=== PATIENT | male | born 1960 | race Caucasian/White ===

== ENCOUNTER → 2016-10-11 | Outpatient (CLI) | payer BC ==
[~2016-10-11] MED LIST: MELO15TA14 PO; NF-LT10/20 PO; PANT40TA2 PO
--- NOTE | 2016-10-11 12:41 | Diagnostic Imaging Report ---
PROCEDURE: MRI right joint upper extremity without contrast. Technique: Multiplanar, multisequence MR imaging of the right shoulder was performed without contrast. Comparison: None available. Indication: Right shoulder pain. Findings: Rotator cuff: Complete tear of the supraspinatus which is retracted at the level of glenohumeral joint. The tear is near the myotendinous junction. There is also a complete tear of the supraspinatus at the myotendinous junction with torn fibers retracted to the glenohumeral joint. Complete retracted tear of the subscapularis. The teres minor is normal. There is severe fatty atrophy of the subscapularis, supraspinatus, and infraspinatus. Glenoid labrum: Diffuse degenerative macerated tearing throughout the entire glenoid labrum. There is tear at the chondrolabral junction throughout the entire labrum with the placement of the anterior inferior labrum. There is a large posterior para-labral cyst superiorly which extends into the suprascapular notch. Long head of biceps: Complete rupture of long head of the biceps. Bones and cartilage: Superior subluxation of the humeral head due to chronic rotator cuff tear. Multifocal partial-thickness chondral loss throughout the glenohumeral joint. Moderate hypertrophic degenerative change of the acromioclavicular joint. Soft tissues: Small glenohumeral joint effusion with mild synovitis. No MRI findings to suggest adhesive capsulitis. No fluid or inflammatory like signal within the subacromial/subdeltoid space to indicate bursitis. IMPRESSION: 1. Chronic massive rotator cuff tear with complete tears of the subscapularis, supraspinatus and infraspinatus. There is associated [id number]-[id number] fatty atrophy of all three muscle bellies. 2. Moderate rotator cuff tear arthropathy of the glenohumeral joint. 3. Complete rupture of the long head of biceps. 4. Extensive degenerative macerated tearing throughout the entire glenoid labrum. 5. Small glenohumeral joint effusion with mild synovitis. Dictated by: Dictated on workstation # [id number]
== END ==
LOC: RAD 08:38
PROVIDERS: ATTEND Orthopaedic Surgery
DX: M75.121 Complete rotator cuff tear or rupture of right shoulder, not specified as traumatic (principal); M62.111 Other rupture of muscle (nontraumatic), right shoulder; S43.491A Other sprain of right shoulder joint, initial encounter; M25.411 Effusion, right shoulder; X58.XXXA Exposure to other specified factors, initial encounter; Y99.8 Other external cause status
CPT/HCPCS: 73221

== ENCOUNTER → 2017-12-01 | Outpatient (CLI) | payer OTHER, BC ==
--- NOTE | 2017-12-01 10:34 | Diagnostic Imaging Report ---
INDICATION: Twisting injury with pain. COMPARISON: No previous exam for comparison. FINDINGS: The lumbar body heights are maintained. The alignment is within normal limits. There is some endplate sclerosis and osteophytes but no acute appearing endplate irregularity. No listhesis. There is only mild degenerative disc space narrowing and mild mid to lower lumbar facet arthrosis. There are aortoiliac atherosclerotic vascular calcifications. IMPRESSION: No acute appearing bony abnormality. Dictated by: Dictated on workstation # [id number]
== END ==
LOC: RAD 09:53
PROVIDERS: ATTEND Nurse Practitioner Family
DX: S39.92XA Unspecified injury of lower back, initial encounter (principal); X50.1XXA Overexertion from prolonged static or awkward postures, initial encounter
CPT/HCPCS: 72100

== ENCOUNTER 2021-04-30 20:30 | Inpatient (IN) | payer BC, OTHER ==
[~2021-04-30] VITALS: Ht 180 cm; Wt 92.0 kg
--- NOTE | 2021-04-30 20:56 | ED General ---
General Stated Complaint: NOT ACTING RIGHT Source of Information: Patient, Family Exam Limitations: No Limitations History of Present Illness Date Seen by Provider: Apr 30, 2021 Time Seen by Provider: 20:38 Initial Comments 58-year-old male with past medical history of hypertension, hyperlipidemia, GERD coming in with family due to generally not feeling well for the past 10 days roughly. Had a GI bug about a month ago. Had a sinus infection which he finished antibiotics and steroids about 3 weeks ago. For the past 10 to 14 days has been generally weak, mild cough which is more chronic, no vomiting, no d iarrhea, no chest pain, but does endorse some dyspnea worse with exertion. Has had normal bowel movements with no bright red blood or black stool. Has been eating and drinking. Has essentially been laying in bed for a couple of days. Is otherwise denying any other acute complaints including chest pain, abdominal pain, nausea, vomiting, diarrhea, focal weakness or numbness, rash, dysuria, or any other concerns. Allergies and Home Medications Allergies Coded Allergies: No Known Drug Allergies (Unverified , 09/10/13) Patient Home Medication List Home Medication List Reviewed: Yes Amlodipine/Benazepril (Lotrel 10-20 mg Capsule) 1 Cap Cap, 1 CAP PO DAILY, (Reported) Entered as Reported by: SCOOTER VASQUEZ on 01/11/151103 Meloxicam (Mobic) 15 Mg Tablet, 15 MG PO DAILY, (Reported) Entered as Reported by: SCOOTER VASQUEZ on 01/11/151103 Pantoprazole Sodium (Protonix) 40 Mg Tablet.dr, 40 MG PO DAILY, (Reported) Entered as Reported by: SCOOTER VASQUEZ on 01/11/151103 Review of Systems Review of Systems Constitutional: No chills, No fever EENTM: No blurred vision Respiratory: cough, short of breath Cardiovascular: No chest pain Gastrointestinal: No abdominal pain, No diarrhea, No nausea, No vomiting Genitourinary: no symptoms reported Musculoskeletal: no symptoms reported Skin: no symptoms reported Psychiatric/Neurological: Other (General weakness) Hematologic/Lymphatic: No Symptoms Reported Immunological/Allergic: no symptoms reported All Other Systems Reviewed Negative Unless Noted: Yes Past Kokjukc-Foborb-Sfzujy Hx Patient Social History Tobacco Use?: Yes Past Medical History Surgeries: Yes (traumatic pneumothorax) Physical Exam Vital Signs Vital Signs - First Documented 04/30/21 20:38 Temp 36.2 Pulse 91 Resp 20 B/P (MAP) 100/51 (67) Pulse Ox 99 O2 Delivery Room Air Capillary Refill : Height, Weight, BMI Height: 5'11.00" Weight: 210lbs. oz. 95.514877bk; BMI Method: General Appearance: No Apparent Distress, Other (pale) HEENT: PERRL/EOMI, Normal ENT Inspection, Pharynx Normal Neck: Full Range of Motion, Normal Inspection, Non Tender, Supple Respiratory: Chest Non Tender, Lungs Clear, Normal Breath Sounds, No Accessory Muscle Use, No Respiratory Distress Cardiovascular: Regular Rate, Rhythm, No Edema, Normal Peripheral Pulses Gastrointestinal: Normal Bowel Sounds, Non Tender, Soft; No Distended, No Guarding Back: Normal Inspection, No CVA Tenderness, No Vertebral Tenderness Extremity: Normal Capillary Refill, Normal Inspection, Normal Range of Motion, Non Tender, No Calf Tenderness Neurologic/Psychiatric: Alert, Oriented x3, No Motor/Sensory Deficits, Normal Mood/Affect Skin: Warm/Dry, Other (Pale) Lymphatic: No Adenopathy Focused Exam Lactate Level 04/30/21 21:25: Lactic Acid Level 5.71*H Lactic Acid Level Laboratory Tests Test 04/30/21 21:25 Lactic Acid Level 5.71 MMOL/L (0.50-2.00) *H Progress/Results/Core Measures Suspected Sepsis SIRS Temperature: Pulse: Respiratory Rate: Blood Pressure / Mean: 04/30/21 21:25: Lactic Acid Level 5.71*H Laboratory Tests 04/30/21 21:25: Creatinine 0.91, INR Comment 1.1, Total Bilirubin 0.3 Results/Orders Lab Results Laboratory Tests Test 04/30/21 20:48 04/30/21 21:25 04/30/21 21:45 Range/Units Influenza Type A (RT-PCR) Not Detected Not Detecte Influenza Type B (RT-PCR) Not Detected Not Detecte SARS-CoV-2 RNA (RT-PCR) Not Detected Not Detecte Prothrombin Time 14.2 12.2-14.7 SEC INR Comment 1.1 0.8-1.4 Activated Partial Thromboplast Time 32 24-35 SEC Sodium Level 126 L 135-145 MMOL/L Potassium Level 4.3 3.6-5.0 MMOL/L Chloride Level 98 98-107 MMOL/L Carbon Dioxide Level 14 L 21-32 MMOL/L Anion Gap 14 5-14 MMOL/L Blood Urea Nitrogen 10 7-18 MG/DL Creatinine 0.91 0.60-1.30 MG/DL Estimat Glomerular Filtration Rate 95 BUN/Creatinine Ratio 11 Glucose Level 91 70-105 MG/DL Lactic Acid Level 5.71 *H 0.50-2.00 MMOL/L Calcium Level 8.3 L 8.5-10.1 MG/DL Corrected Calcium 8.9 8.5-10.1 MG/DL Total Bilirubin 0.3 0.1-1.0 MG/DL Aspartate Amino Transf (AST/SGOT) 13 5-34 U/L Alanine Aminotransferase (ALT/SGPT) 14 0-55 U/L Alkaline Phosphatase 57 40-136 U/L Troponin I < 0.028 <0.028 NG/ML B-Type Natriuretic Peptide 163.2 H <100.0 PG/ML Total Protein 5.6 L 6.4-8.2 GM/DL Albumin 3.3 3.2-4.5 GM/DL Procalcitonin 0.02 <0.10 NG/ML My Orders Orders - EFRAÍN POSADA MD Comprehensive Metabolic Panel (04/30/21 20:50) Blood Culture (04/30/21 20:50) Urinalysis (04/30/21 20:50) Urine Culture (04/30/21 20:50) Protime With Inr (04/30/21 20:50) Partial Thromboplastin Time (04/30/21 20:50) Chest 1 View, Ap/Pa Only (04/30/21 20:50) Ed Iv/Invasive Line Start (04/30/21 20:50) Troponin I Sidney (04/30/21 20:50) Vital Signs Adult Sepsis Patie Q15M (04/30/21 20:50) O2 (04/30/21 20:50) Remove Rings In Anticipation O (04/30/21 20:50) Lactic Acid Analyzer (04/30/21 20:50) Lactated Ringers (Lr 1000 Ml Iv Solution (04/30/21 21:00) Bnp Sidney (04/30/21 20:50) Ekg Tracing (04/30/21 20:50) Procalcitonin (Pct) (04/30/21 20:50) Covid 19 Inhouse Test (04/30/21 20:50) Influenza A And B By Pcr (04/30/21 20:50) Ct Abdomen/Pelvis W (04/30/21 21:50) Medications Given in ED Current Medications Medications Dose Ordered Sig/Olesya Route Start Time Stop Time Status Last Admin Dose Admin Lactated Ringer's 1,000 ml @ 0 mls/hr Q0M ONCE IV 04/30/21 21:00 04/30/21 21:01 DC 04/30/21 21:07 0 MLS/HR Vital Signs/I&O 04/30/21 20:38 Temp 36.2 Pulse 91 Resp 20 B/P (MAP) 100/51 (67) Pulse Ox 99 O2 Delivery Room Air Capillary Refill : Progress Note : Progress Note 50-year-old male with above history coming in due to generally feeling weak. He was hypotensive on presentation for which an IV was placed and a bolus of IV fluids was given. He is not tachycardic and is breathing comfortably. Physical exam reassuring other than he is very pale. CBC was not able to be run because they said it was too diluted. We kept repeating it, but his hemoglobin is too low to run and they are estimating it is less than 3. He was given a unit of blood emergently and was O+ and uncrossed matched due to his hypotension. 3 units have been ordered for crossmatch as well to be given later after repeat CBC. Lactate around 5.7 likely due to his significant anemia. His stool is brown and it does not seem like this is a fast GI bleed. Could be having a slow bleed versus leukemia versus some other issue. CT abdomen and pelvis with no obvious cause of bleeding. Chest x-ray also clear. Discussed the case with Dr. Melissa who will admit the patient to the intensive care unit. I also called and discussed the case with the ICU physician. ECG Initial ECG Impression Date: Apr 30, 2021 Initial ECG Impression Time: 21:00 Initial ECG Rate: 81 Initial ECG Rhythm: Normal Sinus Comment Narrow QRS, normal axis, no significant ST changes or T wave abnormalities Diagnostic Imaging Diagonstic Imaging: Xray (chest), CT (abd/pelv with) Comments [facility] [place], [place] NAME: JEFF SILVA [facility] REC#: [id number] PT STATUS: REG ER : 1960 PHYSICIAN: EFRAÍN POSADA MD ADMIT DATE: 04/30/21/ER Draft Date of Exam:04/30/21 CHEST 1 VIEW, AP/PA ONLY EXAMINATION: Chest 1 view HISTORY: Short of breath COMPARISON: None available. FINDINGS: The lungs are clear without edema or pneumonia. No pleural effusion or pneumothorax. Heart size is normal. IMPRESSION: 1. Clear lungs. Dictated on workstation # [id number] Dict: 04/30/212226 Trans: 04/30/212228 [facility] [id number] Interpreted by: EDY LEONARDO MD Electronically signed by: [facility] [place], [place] NAME: JEFF SILVA [facility] REC#: [id number] PT STATUS: ADM IN : 1960 PHYSICIAN: EFRAÍN POSADA MD ADMIT DATE: 04/30/21/ICU Signed Date of Exam:04/30/21 CT ABDOMEN/PELVIS W EXAMINATION: CT abdomen and pelvis with intravenous contrast. TECHNIQUE: Multiple contiguous axial images were obtained through the abdomen and pelvis after the uneventful administration of intravenous contrast. All CT scans use one or more of the following dose optimizing techniques: automated exposure control, MA and/or KvP adjustment based on patient size and exam type or iterative reconstruction. HISTORY: Hypotensive COMPARISON: None available. FINDINGS: Limited views of the lower thorax show coronary artery calcifications. The liver is normal without focal lesion. There is no biliary ductal dilation. There is motion artifact in the upper abdomen but there does appear to be gallbladder wall thickening. There is periportal edema. Pancreas is normal. Spleen is normal. Adrenal glands are normal. The kidneys are normal. There is no hydronephrosis. Urinary bladder is normal. Bowel is normal in caliber without obstruction or inflammation. No free fluid or air. No abdominal or pelvic lymphadenopathy. Aorta is normal in caliber without aneurysm. There are no suspicious osseus lesions. IMPRESSION: 1. Gallbladder wall thickening and periportal edema, sonogram recommended to evaluate for cholecystitis. Dictated by: Dictated on workstation # [id number] Dict: 04/30/[id number] Trans: 04/30/212247 [facility] [id number] Interpreted by: EDY LEONARDO MD Electronically signed by: EDY LEONARDO MD 04/30/218 Departure Impression Primary Impression: Hemorrhagic shock Disposition: ADMITTED INPATIENT Condition: Stable Admissions Decision to Admit Reason: Admit from ER (General) Decision to Admit/Date: Apr 30, 2021 Time/Decision to Admit Time: 22:50 Departure-Patient Inst. Referrals: MÓNICA MELISSA MD (PCP/Family) Primary Care Physician EFRAÍN POSADA MD Apr 30, 2021 20:56
[2021-04-30] MEDS ORDERED: LACTATED RINGERS 1,000 ML IV ONE (21:00)
[2021-04-30 21:43] LABS: INR 1.1 (0.8-1.4); PROTHROMBIN TIME PATIENT 14.2 SEC (12.2-14.7)
[2021-04-30 21:49] LABS: ALBUMIN 3.3 GM/DL (3.2-4.5); CHLORIDE 98 MMOL/L (98-107); POTASSIUM 4.3 MMOL/L (3.6-5.0); SODIUM 126 MMOL/L (135-145)
[2021-04-30 21:50] LABS: CALCIUM 8.3 MG/DL (8.5-10.1)
[2021-04-30 21:52] LABS: GLUCOSE 91 MG/DL (70-105); TOTAL PROTEIN 5.6 GM/DL (6.4-8.2)
[2021-04-30 21:53] LABS: BILIRUBIN,TOTAL 0.3 MG/DL (0.1-1.0); CARBON DIOXIDE 14 MMOL/L (21-32)
[2021-04-30 21:55] LABS: ALKALINE PHOSPHATASE 57 U/L (40-136); CREATININE SERUM 0.91 MG/DL (0.60-1.30); GFR ESTIMATED 95
[2021-04-30 21:56] LABS: BUN/CREATININE RATIO 11
[2021-04-30 21:58] LABS: ALANINE AMINOTRANSFERASE 14 U/L (0-55)
[2021-04-30] MEDS ORDERED: NS IV 500 ML 500 ML IV SCH (22:15)
[2021-04-30] MEDS ORDERED: PANTOPRAZOLE 40 MG (PROTONIX) VIAL IV ONE (22:15)
--- NOTE | 2021-04-30 22:30 | Diagnostic Imaging Report ---
EXAMINATION: Chest 1 view HISTORY: Short of breath COMPARISON: None available. FINDINGS: The lungs are clear without edema or pneumonia. No pleural effusion or pneumothorax. Heart size is normal. IMPRESSION: 1. Clear lungs. Dictated by: Dictated on workstation # [id number]
--- NOTE | 2021-04-30 22:38 | Diagnostic Imaging Report ---
EXAMINATION: CT abdomen and pelvis with intravenous contrast. TECHNIQUE: Multiple contiguous axial images were obtained through the abdomen and pelvis after the uneventful administration of intravenous contrast. All CT scans use one or more of the following dose optimizing techniques: automated exposure control, MA and/or KvP adjustment based on patient size and exam type or iterative reconstruction. HISTORY: Hypotensive COMPARISON: None available. FINDINGS: Limited views of the lower thorax show coronary artery calcifications. The liver is normal without focal lesion. There is no biliary ductal dilation. There is motion artifact in the upper abdomen but there does appear to be gallbladder wall thickening. There is periportal edema. Pancreas is normal. Spleen is normal. Adrenal glands are normal. The kidneys are normal. There is no hydronephrosis. Urinary bladder is normal. Bowel is normal in caliber without obstruction or inflammation. No free fluid or air. No abdominal or pelvic lymphadenopathy. Aorta is normal in caliber without aneurysm. There are no suspicious osseus lesions. IMPRESSION: 1. Gallbladder wall thickening and periportal edema, sonogram recommended to evaluate for cholecystitis. Dictated by: Dictated on workstation # [id number]
[2021-04-30 22:45] VITALS: BP 88/37
[2021-04-30] MEDS ORDERED: IOHEXOL 350 MG/ML 100 ML (OMNIPAQUE 350) VIAL IV ONE (22:45)
[2021-04-30] MEDS ORDERED: NS 100 ML (IVPB) BAG IV ONE (22:45)
[2021-04-30] MEDS ORDERED: HOLD METFORMIN - RECEIVED CONTRAST 20 ML VIAL IV SCH (22:45)
--- NOTE | 2021-04-30 22:54 | Tele-ICU Progress Note ---
Subjective Date Seen by a Provider: Apr 30, 2021 Time Seen by a Provider: 22:30 Subjective/Events-last exam This virtual visit was conducted using real time audio/video. Thank you for asking us to see this patient for hypotension and severe anemia w HB < 3.0. Recent events: [place] weak for last 10 days. PMH: HTN, HL, GERD. SH: smoking history N FH: Non-contributory ROS: as in HPI PE: VSS. 100/50. Pale. O2 sat 99% on RA HEENT: No obvious masses, adenopathy or JVD. Chest: clear to auscultation. CV: RRR S1 S2 No murmur or added sounds. Abd: Non-tender. Bowel sounds Y. : Unremarkable. Olivera N. SCHEDULING ADMINISTRATOR/psychiatric: Grossly intact. No obvious focal findings. Extremities: No edema. Capillary refill < 3 seconds. Skin: unremarkable. Results: Elevated lactate 5.71. Decreased Hb <3.0, Na 126. WCC and Plts pending. CXR: Clear. Available chart/ vitals / labs / images reviewed. Video assessment done using teleICU camera, rest of exam as per RN. A/P: Critical Care: critically ill patient. GIB v. Leukemia? Cont. IVF, PPI, Transfuse 3 more units following 1 Unit Oneg in ER. Discussed with RN Leonie and ER MD. Asked RN to reach out to eICU if any questions or concerns later. Time spent with patient/coordination of care with other health professionals (mins): 22 Sepsis Event Evaluation Height, Weight, BMI Height: 5'11.00" Weight: 210lbs. oz. 95.426755bz; 27.00 BMI Method: Focused Exam Lactate Level 04/30/21 21:25: Lactic Acid Level 5.71*H Lactic Acid Level Laboratory Tests Test 04/30/21 21:25 Lactic Acid Level 5.71 MMOL/L (0.50-2.00) *H Exam Exam Patient acknowledged, consented, and participated in this virtual visit which was conducted using real time audio/video Vital Signs Date Time Temp Pulse Resp B/P (MAP) Pulse Ox O2 Delivery O2 Flow Rate FiO2 04/30/21 20:38 36.2 91 20 100/51 (67) 99 Room Air Height & Weight Height: 5'11.00" Weight: 210lbs. oz. 95.479644tc; 27.00 BMI Method: General Appearance: No Apparent Distress, Other (pale) HEENT: PERRL/EOMI, Normal ENT Inspection, Pharynx Normal Neck: Full Range of Motion, Normal Inspection, Non Tender, Supple Respiratory: Chest Non Tender, Lungs Clear, Normal Breath Sounds, No Accessory Muscle Use, No Respiratory Distress Cardiovascular: Regular Rate, Rhythm, No Edema, Normal Peripheral Pulses Capillary Refill: Less Than 3 Seconds Extremity: Normal Capillary Refill, Normal Inspection, Normal Range of Motion, Non Tender, No Calf Tenderness Neurologic/Psychiatric: Alert, Oriented x3, No Motor/Sensory Deficits, Normal Mood/Affect Skin: Warm/Dry, Other (Pale) Lymphatic: No Adenopathy Results Lab Laboratory Tests 04/30/21 21:25 Assessment/Plan Assessment/Plan See free text. Critical Care: Critically Ill Patient SOPHIA UQIROGA MD Apr 30, 2021 22:54
[2021-04-30 23:00] VITALS: BP 84/44
[2021-04-30] MEDS ORDERED: CATHETER FLUSH 10 ML SYR IVP PRN (23:45)
[2021-05-01] VITALS (11 sets, daily range): BP systolic 96–124; BP diastolic 46–78
[2021-05-01 00:33] LABS: BASOPHILS % (AUTO) 0 % (0-10); MEAN CORPUSCULAR HEMOGLOBIN 26 pg (25-34)
[2021-05-01 00:38] LABS: ABSOLUTE RETIC # 73 10e9/uL (24-90); EOSINOPHILS % (AUTO) 1 % (0-10); LYMPHOCYTES # (AUTO) 0.9 10^3/uL (1.0-4.0); LYMPHOCYTES % (AUTO) 10 % (12-44); MEAN CORPUSCULAR HGB CONC 31 g/dL (32-36); MEAN CORPUSCULAR VOLUME 82 fL (80-99); MEAN PLATELET VOLUME 9.8 fL (9.0-12.2); MONOCYTES # (AUTO) 0.8 10^3/uL (0.0-1.0); MONOCYTES % (AUTO) 9 % (0-12); NEUTROPHILS # (AUTO) 6.7 10^3/uL (1.8-7.8); NEUTROPHILS % (AUTO) 80 % (42-75); PLATELET COUNT 311 10^3/uL (130-400); RETICULOCYTE % 5.14 % (0.50-2.40); WHITE BLOOD COUNT 8.5 10^3/uL (4.3-11.0)
[2021-05-01 00:48] LABS: HEMATOCRIT 12 % (40-54); HEMOGLOBIN 3.6 g/dL (13.3-17.7)
[2021-05-01 00:59] LABS: BAND NEUTROPHILS 1 %; LYMPHOCYTES % (MANUAL) 12 %; MONOCYTES % (MANUAL) 3 %; NEUTROPHILS % (MANUAL) 83 %
[2021-05-01 01:00] LABS: ANISOCYTOSIS MARKED; EOSINOPHILS % (MANUAL) 1 %; HYPOCHROMASIA MARKED; NUCLEATED RED BLOOD CELLS 1
[2021-05-01] MEDS ORDERED: RT-ALBUTEROL/IPRATROPIUM 3 ML (DUONEB) VIAL INH PRN (01:00)
[2021-05-01] MEDS ORDERED: NS IV 500 ML 500 ML IV SCH ×3 (01:15→23:00)
[2021-05-01] MEDS: RT-ALBUTEROL/IPRATROPIUM 3 ML (DUONEB) VIAL INH SCH ×4 (02:38→22:18)
[2021-05-01 03:12] LABS: BASOPHILS % (AUTO) 0 % (0-10); EOSINOPHILS # (AUTO) 0.1 10^3/uL (0.0-0.3); EOSINOPHILS % (AUTO) 1 % (0-10); LYMPHOCYTES # (AUTO) 0.9 10^3/uL (1.0-4.0); LYMPHOCYTES % (AUTO) 11 % (12-44); MEAN CORPUSCULAR HEMOGLOBIN 26 pg (25-34); MEAN CORPUSCULAR HGB CONC 32 g/dL (32-36); MEAN CORPUSCULAR VOLUME 83 fL (80-99); MEAN PLATELET VOLUME 9.7 fL (9.0-12.2); MONOCYTES # (AUTO) 0.7 10^3/uL (0.0-1.0); MONOCYTES % (AUTO) 9 % (0-12); NEUTROPHILS # (AUTO) 6.5 10^3/uL (1.8-7.8); NEUTROPHILS % (AUTO) 80 % (42-75); PLATELET COUNT 310 10^3/uL (130-400); WHITE BLOOD COUNT 8.2 10^3/uL (4.3-11.0)
[2021-05-01 03:24] LABS: ALBUMIN 3.3 GM/DL (3.2-4.5); POTASSIUM 4.5 MMOL/L (3.6-5.0)
[2021-05-01 03:25] LABS: CALCIUM 7.8 MG/DL (8.5-10.1)
[2021-05-01 03:26] LABS: TOTAL PROTEIN 5.6 GM/DL (6.4-8.2)
[2021-05-01 03:28] LABS: BILIRUBIN,TOTAL 0.7 MG/DL (0.1-1.0)
[2021-05-01 03:29] LABS: PHOSPHORUS 4.3 MG/DL (2.3-4.7)
[2021-05-01 03:30] LABS: CREATININE SERUM 0.83 MG/DL (0.60-1.30); HEMATOCRIT 13 % (40-54); HEMOGLOBIN 4.2 g/dL (13.3-17.7)
[2021-05-01 03:32] LABS: MAGNESIUM 1.9 MG/DL (1.6-2.4)
[2021-05-01] MEDS: POTASSIUM CL 10MEQ/50ML IVPB 50 ML IV SCH (05:33)
[2021-05-01] MEDS: MAGNESIUM 1 GM/100 ML IVPB 100 ML IV SCH (05:34)
[2021-05-01] MEDS: KCL 20 MEQ TAB (K-DUR) PO SCH (05:35)
[2021-05-01] MEDS: CATHETER FLUSH 10 ML SYR IVP SCH ×3 (05:35→20:38)
[2021-05-01 06:12] LABS: BASOPHILS % (AUTO) 0 % (0-10); EOSINOPHILS # (AUTO) 0.1 10^3/uL (0.0-0.3); EOSINOPHILS % (AUTO) 1 % (0-10); LYMPHOCYTES # (AUTO) 1.2 10^3/uL (1.0-4.0); LYMPHOCYTES % (AUTO) 15 % (12-44); MEAN CORPUSCULAR HEMOGLOBIN 24 pg (25-34); MEAN CORPUSCULAR HGB CONC 29 g/dL (32-36); MEAN CORPUSCULAR VOLUME 84 fL (80-99); MEAN PLATELET VOLUME 10.9 fL (9.0-12.2); MONOCYTES # (AUTO) 0.8 10^3/uL (0.0-1.0); MONOCYTES % (AUTO) 9 % (0-12); NEUTROPHILS # (AUTO) 6.2 10^3/uL (1.8-7.8); NEUTROPHILS % (AUTO) 75 % (42-75); PLATELET COUNT 318 10^3/uL (130-400); WHITE BLOOD COUNT 8.2 10^3/uL (4.3-11.0)
[2021-05-01 06:15] LABS: HEMATOCRIT 10 % (40-54)
[2021-05-01 06:34] LABS: LYMPHOCYTES % (MANUAL) 11 %; MONOCYTES % (MANUAL) 12 %; NEUTROPHILS % (MANUAL) 77 %
[2021-05-01 06:35] LABS: ANISOCYTOSIS MARKED; HYPOCHROMASIA MARKED; MICROCYTOSIS SLIGHT; NUCLEATED RED BLOOD CELLS 2; POLYCHROMASIA MODERATE
--- NOTE | 2021-05-01 07:52 | History & Physical ---
History of Present Illness History of Present Illness Reason for visit/HPI Pt is a 60 y/o male who is known to me from previously being a patient in clinic. [facility] (pt goes by Fabienne) - has not been to the office since 10/2018. Pt reports that he has been receiving his healthcare at the [facility]. The pt and his dtr report that he had a URI about 3 weeks ago, was feeling in his usual state of health until the illness. He was treated with antibiotics and steroids, but his fatigue lingered. The patients daughter, Daisha, reports that she had been told that he was "looking horrible" and he denied feeling poorly, just wiped out. However, more friends called his dtr reporting that he appeared short of breath and very pale, she came down to check on him and she noted that he was so pale he looked like a corpse at a , could not get an oxygen saturation on him so she brought him to the ER. The ER physician reports that Fabienne had extreme pallor, and they immediately naresh labs, had him typed and crossmatched and the lab called to report "undetectable" hgb and plts. The reported Hgb was 3.0. Fabienne was admitted for blood transfusion, gi tract evaluation and supportive care for his cardiovascular system. Today he reports very restless leg, and also fatigue, but feels better than on admission, his dtr notes his color is much improved. Date of Admission Apr 30, 2021 at 22:00 Date Seen by a Provider: May 01, 2021 Time Seen by a Provider: 07:50 I consulted on this patient on 05/01/21 07:50 Attending Physician Mónica Mane MD Admitting Physician Mónica Mane MD Consult EICU Dr. Calderon - Heme/Oncology Dr. Gutierrez - surgeon Allergies and Home Medications Allergies Coded Allergies: No Known Drug Allergies (Unverified , 09/10/13) Patient Home Medication List Home Medication List Reviewed: Yes Atorvastatin Calcium (Atorvastatin Calcium) 80 Mg Tablet, 80 MG PO DAILY, (Reported) Entered as Reported by: CARLOS RODRIGUEZ on 05/01/21 1020 Last Action: Held Diltiazem HCl (Diltiazem 24Hr ER) 300 Mg Cap.er.24h, 300 MG PO DAILY, (Reported) Entered as Reported by: CARLOS RODRIGUEZ on 05/01/211019 Last Action: Continued Doxazosin Mesylate (Doxazosin Mesylate) 2 Mg Tablet, 2 MG PO DAILY, (Reported) Entered as Reported by: CARLOS RODRIGUEZ on 05/01/211019 Last Action: Continued Lorazepam (Ativan) 1 Mg Tablet, 1 MG PO HS, (Reported) Entered as Reported by: CARLOS RODRIGUEZ on 05/01/211019 Last Action: Continued Lorazepam (Ativan) 1 Mg Tablet, 1 MG PO DAILY PRN for ANXIETY, (Reported) Entered as Reported by: CARLOS RODRIGUEZ on 05/01/211019 Last Action: Continued Losartan/Hydrochlorothiazide (Losartan-Hctz 100-12.5 mg Tab) 1 Each Tablet, 1 EA PO DAILY, (Reported) Entered as Reported by: CARLOS RODRIGUEZ on 05/01/211019 Last Action: Held Meloxicam (Meloxicam) 15 Mg Tablet, 15 MG PO DAILY, (Reported) Entered as Reported by: CARLOS RODRIGUEZ on 05/01/211019 Last Action: Held Pantoprazole Sodium (Pantoprazole Sodium) 40 Mg Tablet.dr, 40 MG PO DAILY, (Reported) Entered as Reported by: CARLOS RODRIGUEZ on 05/01/211019 Last Action: Held Polyethylene Glycol 3350 (Miralax) 17 Gm Powd.pack, 17 GM PO DAILY PRN for CONSTIPATION-2ND LINE, (Reported) Entered as Reported by: CARLOS RODRIGUEZ on 05/01/211019 Last Action: Continued Sildenafil Citrate (Sildenafil) 20 Mg Tablet, 10 MG PO UD PRN for ED, (Reported) Entered as Reported by: CARLOS RODRIGUEZ on 05/01/211019 Last Action: Held Discontinued Medications Amlodipine/Benazepril (Lotrel 10-20 mg Capsule) 1 Cap Cap, 1 CAP PO DAILY, (Reported) Discontinued Reason: Duplicate Order Entered as Reported by: SCOOTER VASQUEZ on 01/11/151103 Last Action: Discontinued Meloxicam (Mobic) 15 Mg Tablet, 15 MG PO DAILY, (Reported) Entered as Reported by: SCOOTER VASQUEZ on 01/11/151103 Last Action: Discontinued Pantoprazole Sodium (Protonix) 40 Mg Tablet.dr, 40 MG PO DAILY, (Reported) Discontinued Reason: Duplicate Order Entered as Reported by: SCOOTER VASQUEZ on 01/11/15 7610 Last Action: Discontinued Past Fhnxmmd-Uhrlpc-Jdhblh Hx Patient Social History Marrital Status: Number of Children: 1 Living Status: lives in his home Employed/Student: employed Tobacco Use?: Yes Tobacco type used: Cigarettes Smoking Status: Current Everyday Smoker Use of E-Cig and/or Vaping dev: No Substance use?: No Alcohol Use?: Yes Alcohol type: Beer Alcohol Frequency: Couple times a week Immunizations Up To Date Date of Influenza Vaccine: Jan 30, 2021 First/Initial COVID19 Vaccinat: 2020 Second COVID19 Vaccination Geoffrey: 2020 Tetanus Booster (TDap): Unknown Seasonal Allergies Seasonal Allergies: No Current Status Advance Directives: No Communicates: Verbally Primary Language: Malay Preferred Spoken Language: Malay Past Medical History Surgeries: Orthopedic (right knee surgery) Currently Using CPAP: No Currently Using BIPAP: No Hypertension Sexually Transmitted Disease: No HIV/AIDS: No Chronic Constipation Arthritis Are Your Blood Sugars Over 250: No Loss of Vision: Denies Hearing Impairment: Denies Sleep Difficulties Blood Disorders: No Adverse Reaction/Blood Tranf: No Family Medical History Reviewed and Corrections made Heart Disease, Cancer (colorectal CA - sister), CAD Over 55 Years Old, Hypertension Review of Systems Constitutional: No chills, No diaphoresis; dizziness; No fever; malaise, weakness; No weight loss EENTM: No no symptoms reported, No hearing loss, No blurred vision, No vision loss, No mouth pain, No epistaxis, No nose congestion Respiratory: No cough; dyspnea on exertion; No hemoptysis, No orthopnea; short of breath; No stridor, No wheezing Cardiovascular: No chest pain, No edema, No palpitations, No syncope Gastrointestinal: abdominal pain (RUQ), constipation; No diarrhea, No dysphagia, No hematemesis; heartburn; No jaundice, No loss of appetite, No melena, No nausea Genitourinary: no symptoms reported; No dysuria, No frequency, No hematuria Musculoskeletal: No no symptoms reported, No back pain, No joint pain, No joint swelling; muscle weakness Skin: no symptoms reported Psychiatric/Neurological: Weakness All Other Systems Reviewed Negative Unless Noted: Yes Physical Exam Vital Signs Vital Signs - First Documented 04/30/21 05/01/21 20:38 00:30 Temp 36.2 Pulse 91 Resp 20 B/P (MAP) 100/51 (67) Pulse Ox 99 O2 Delivery Room Air FiO2 21 Capillary Refill : Less Than 3 Seconds Height, Weight, BMI Height: 5'11.00" Weight: 210lbs. oz. [id number]; 29.75 BMI Method: General Appearance: No Apparent Distress, WD/WN HEENT: PERRL/EOMI, Pharynx Normal Neck: Full Range of Motion, Normal Inspection, Non Tender, Supple Respiratory: Chest Non Tender, Lungs Clear, Normal Breath Sounds, No Accessory Muscle Use, No Respiratory Distress Cardiovascular: Regular Rate, Rhythm, Normal Peripheral Pulses Gastrointestinal: Normal Bowel Sounds, No Organomegaly, No Pulsatile Mass, Soft, Tenderness (very mild in right upper abdomen) Rectal: Normal Rectal Tone, Heme Positive Stool; No Hemorrhoids, No Mass, No Tenderness Back: Normal Inspection, No CVA Tenderness, No Vertebral Tenderness Extremity: Normal Capillary Refill, Normal Inspection, Normal Range of Motion, Non Tender, No Calf Tenderness, No Pedal Edema Neurologic/Psychiatric: Alert, Oriented x3, No Motor/Sensory Deficits, Normal Mood/Affect Skin: Warm/Dry, Pallor (slight) Assessment/Plan Assessment and Plan Extreme Anemia Hyponatremia Chronic Hypertension Chronic Esophageal reflux Hyperlipidemia BPH Anxiety Restless legs due to iron deficiency Extreme Anemia - suspect GI loss of blood - consult to Dr. Gutierrez for Colonoscope - after 4 units of blood - hgb up to 7.0, repeat labs later today, and again in morning. - consult to Hematology/Oncology. - peripheral smear pending Hyponatremia - slightly improved - monitor with repeat labs. Chronic Hypertension - resume home regimen Chronic Esophageal reflux - pantoprazole 40mg bid started. Hyperlipidemia - hold lipitor for now - will contribute to fatigue. BPH - will address as outpatient - pt on doxazosin. Anxiety - resume ativan Restless legs due to iron deficiency - monitor - gave dose of requip today GI prophylaxis with ppi DVT prophylaxis with scd's - not on lovenox due to suspected GI bleed. Admission Diagnosis Extreme Anemia Hyponatremia Chronic Hypertension Chronic Esophageal reflux Hyperlipidemia BPH Anxiety Restless legs due to iron deficiency Admission Status: Inpatient Order (span 2 midnights) Reason for Inpatient Admission: Pt is admitted for extreme anemia - suspect GI bleed - will require at least 2-3 midnights in the hospital for stabilization and investigation as to his source of blood loss. MÓNICA MANE MD May 01, 2021 07:52
[2021-05-01] MEDS ORDERED: rOPINIRole 0.25 MG (REQUIP) TAB PO ONE (08:30)
[2021-05-01] MEDS: NICOTINE 14 MG (NICODERM) PATCH TD SCH (08:53)
--- NOTE | 2021-05-01 09:16 | Diagnostic Imaging Report ---
EXAMINATION: CT chest without contrast. TECHNIQUE: Multiple contiguous axial images were obtained through the chest without the use of intravenous contrast. All CT scans use one or more of the following dose optimizing techniques: automated exposure control, MA and/or KvP adjustment based on patient size and exam type or iterative reconstruction. HISTORY: Severe anemia. Hemorrhagic shock. Cough and shortness of breath. COMPARISON: 12/14/2014. 04/30/2021. FINDINGS: The heart size is enlarged. Small pericardial effusion is present. There is scattered calcified aortic and coronary atherosclerotic plaque without evidence of aneurysm. Mildly prominent axillary lymph nodes are seen. Nodule is seen in the left lung base measuring 0.7 cm. There are no focal areas of consolidation. A small amount of dependent opacities are seen in the lung bases. No central endobronchial obstructing lesions are identified. Small right and trace left pleural effusions are seen. No pneumothorax. The osseous structures demonstrate no acute abnormalities. The kidneys have an heterogeneous appearance with likely retained contrast from the prior contrast study performed 10 hours earlier. Perinephric fat stranding is seen bilaterally. Excreted contrast is also seen throughout the gallbladder. IMPRESSION: 1. Small right and trace left pleural effusions with bibasilar atelectasis. 2. Cardiomegaly. 3. Nodule in the left lung base measuring 0.7 cm. Consider followup with chest CT in 12 months to ensure stability. 4. Abnormal retention of contrast within the kidneys from a prior contrast enhanced study 10 hours ago. Findings suggest renal failure. Recommend correlation with laboratory values. Dictated by: Dictated on workstation # [id number]
--- NOTE | 2021-05-01 09:45 | Tele-ICU Progress Note ---
Subjective Date Seen by a Provider: May 01, 2021 Time Seen by a Provider: 09:44 Subjective/Events-last exam (Tele-ICU Physician , Progress Note ) Available chart/ vitals / labs / Images reviewed Video assessment done using teleICU camera, rest of exam as per RN Discussed with RN , EXAM PER RN Events overnight : no BM inpatient , received 4 U PRBC Afebrile FiO2 - RA I/O = + Drips: Pressors: , hemodynamically stable Consultants: sx Hospital course: (04/30) 60y/M in with severe anemia Hg<3.0. pr has lactic acidosis. hypotensive 2/2 anemia= s/p 4U PRBC transfusion 05/01- hb 7.0 , normotensive A /P ABLA -s/p 4U PRBC transfusion ,hb 7.0 , normotensive- follow - no active GIB now GIB, suspected loewer - sx consulted, \\-NPO - protonix ? as per Sx Hemorrahic shock - resolved Hyponatremia - hyp[ovolemia - will follow now with repeated labs and check TSH , no sx or mental statuus change CM with pericard and plural effusion - monitor off IVF - card w/up as per PCP Lines : (Central Line Necessity Reviewed) Olivera: void OG: Nutrition: npo Analgesia: Anxiety/ delirium VTE Prophylaxis: scd Stress Ulcer Prophylaxis: Plans in collaboration with bedside consultants and IM MDs. Discussed with RN to reach out if any questions or concerns A total of 31 minutes of critical care time was devoted to this patient today, required to treat and/or prevent further deterioration of critical care condition ( as above) . Sepsis Event Evaluation Height, Weight, BMI Height: 5'11.00" Weight: 210lbs. oz. 95.909916yo; 29.75 BMI Method: Focused Exam Lactate Level 04/30/21 21:25: Lactic Acid Level 5.71*H 05/01/21 00:23: Lactic Acid Level 2.57*H 05/01/21 03:05: Lactic Acid Level 0.83 Exam Exam Patient acknowledged, consented, and participated in this virtual visit which was conducted using real time audio/video Vital Signs Date Time Temp Pulse Resp B/P (MAP) Pulse Ox O2 Delivery O2 Flow Rate FiO2 05/01/21 08:41 94 Room Air 05/01/21 08:14 36.8 80 16 124/78 94 Room Air 05/01/21 08:00 37.0 05/01/21 06:28 36.6 77 19 116/67 94 Room Air 05/01/21 06:14 37.2 85 17 119/70 97 Room Air 05/01/21 06:05 79 22 118/66 93 Room Air 05/01/21 05:55 36.8 84 14 117/71 95 Room Air 05/01/21 05:00 79 17 130/81 94 Room Air 05/01/21 04:15 37.1 81 18 112/52 96 Room Air 05/01/21 04:03 37.1 85 15 106/59 96 Room Air 05/01/21 04:00 94 Room Air 05/01/21 04:00 88 15 112/52 94 Room Air 05/01/21 03:47 36.2 74 14 116/46 94 Room Air 05/01/21 03:45 36.9 79 14 116/46 94 Room Air 05/01/21 03:00 81 10 114/66 94 Room Air 05/01/21 02:38 92 Room Air 05/01/21 02:00 85 5 106/65 99 Room Air 05/01/21 01:56 37.6 86 18 96/56 99 Room Air 05/01/21 01:46 38.0 81 16 103/50 100 Room Air 05/01/21 01:43 38.0 96 16 103/50 100 Room Air 05/01/21 01:00 92 21 104/51 100 Room Air 05/01/21 00:30 36.7 83 94 21 05/01/21 00:11 36.7 83 14 100/56 94 Room Air 05/01/21 00:00 80 17 98/50 99 Room Air 05/01/21 00:00 84 04/30/21 23:59 100 Room Air 04/30/21 23:45 36.7 82 14 121/55 100 Room Air 04/30/21 23:32 36.1 95 18 103/87 98 Room Air 04/30/21 23:30 128/69 Room Air 04/30/21 23:00 36.1 101 20 84/44 100 04/30/21 23:00 36.1 98 18 84/44 100 Room Air 04/30/21 22:55 36.1 93 18 81/48 98 Room Air 04/30/21 22:50 36.1 93 18 80/41 96 Room Air 04/30/21 22:45 36.2 93 18 88/37 97 Room Air 04/30/21 22:45 36.2 97 23 88/37 100 Room Air 04/30/21 22:36 36.7 82 14 100 Room Air 04/30/21 20:38 36.2 91 20 100/51 (67) 99 Room Air I & O 05/01/21 07:00 Intake Total 1000 ml Output Total 1125 ml Balance -125 ml Height & Weight Height: 5'11.00" Weight: 210lbs. oz. 95.921285pn; 29.75 BMI Method: General Appearance: No Apparent Distress, Other (pale) HEENT: PERRL/EOMI, Normal ENT Inspection, Pharynx Normal Neck: Full Range of Motion, Normal Inspection, Non Tender, Supple Respiratory: Chest Non Tender, Lungs Clear, Normal Breath Sounds, No Accessory Muscle Use, No Respiratory Distress Cardiovascular: Regular Rate, Rhythm, No Edema, Normal Peripheral Pulses Capillary Refill: Less Than 3 Seconds Extremity: Normal Capillary Refill, Normal Inspection, Normal Range of Motion, Non Tender, No Calf Tenderness Neurologic/Psychiatric: Alert, Oriented x3, No Motor/Sensory Deficits, Normal Mood/Affect Skin: Warm/Dry, Other (Pale) Lymphatic: No Adenopathy Results Lab Laboratory Tests 04/30/21 21:25 05/01/21 00:23 05/01/21 03:05 05/01/21 09:00 Assessment/Plan Assessment/Plan . BO RUFFIN MD May 01, 2021 09:45
[2021-05-01] MEDS ORDERED: DOXA2TAB2 PO (10:20)
[2021-05-01] MEDS ORDERED: SILD20TA14 PO (10:20)
[2021-05-01] MEDS ORDERED: PANT40TA52 PO (10:20)
[2021-05-01] MEDS ORDERED: MELO15TA39 PO (10:20)
[2021-05-01] MEDS ORDERED: POLY17PO6 PO (10:20)
[2021-05-01] MEDS ORDERED: LORA-405 PO ×2 (10:20)
[2021-05-01] MEDS ORDERED: ATOR80TA76 PO (10:20)
[2021-05-01] MEDS ORDERED: DILT300C52 PO (10:20)
[2021-05-01] MEDS ORDERED: LOSA1TAB26 PO (10:20)
--- NOTE | 2021-05-01 14:02 | Progress Note-Pre Operative ---
Pre-Operative Progress Note H&P Reviewed The H&P was reviewed, patient examined and no changes noted. Date Seen by Provider: May 01, 2021 Time Seen by Provider: 14:00 Date H&P Reviewed: May 01, 2021 Time H&P Reviewed: 14:00 Pre-Operative Diagnosis: anemia, hx GERD, hx polyp COLE LUNSFORD MD May 01, 2021 14:02
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
[2021-05-01] MEDS: MAGNESIUM CITRATE 300 ML BTL PO SCH ×2 (16:09→18:43)
[2021-05-01] MEDS ORDERED: polyethylene glycoL POWDER 17 GM (MIRALAX) PACK PO PRN (17:00)
[2021-05-01] MEDS ORDERED: LORazepam 1 MG (ATIVAN) TAB PO PRN (17:00)
[2021-05-01] MEDS ORDERED: LORazepam 1 MG (ATIVAN) TAB ONE (17:14)
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
[2021-05-01 18:25] LABS: ABSOLUTE RETIC # 81 10e9/uL (24-90); BASOPHILS % (AUTO) 0 % (0-10); EOSINOPHILS # (AUTO) 0.1 10^3/uL (0.0-0.3); EOSINOPHILS % (AUTO) 1 % (0-10); HEMATOCRIT 10 % (40-54); LYMPHOCYTES # (AUTO) 1.2 10^3/uL (1.0-4.0); LYMPHOCYTES % (AUTO) 15 % (12-44); MEAN CORPUSCULAR HEMOGLOBIN 24 pg (25-34); MEAN CORPUSCULAR HGB CONC 29 g/dL (32-36); MEAN CORPUSCULAR VOLUME 84 fL (80-99); MEAN PLATELET VOLUME 10.9 fL (9.0-12.2); MONOCYTES # (AUTO) 0.8 10^3/uL (0.0-1.0); MONOCYTES % (AUTO) 9 % (0-12); NEUTROPHILS # (AUTO) 6.2 10^3/uL (1.8-7.8); NEUTROPHILS % (AUTO) 75 % (42-75); PLATELET COUNT 318 10^3/uL (130-400); RETICULOCYTE % 6.55 % (0.50-2.40); WHITE BLOOD COUNT 8.2 10^3/uL (4.3-11.0)
[2021-05-01 18:26] LABS: LYMPHOCYTES % (MANUAL) 11 %; MONOCYTES % (MANUAL) 12 %; NEUTROPHILS % (MANUAL) 77 %; NUCLEATED RED BLOOD CELLS 2
[2021-05-01 18:27] LABS: ANISOCYTOSIS MARKED; HYPOCHROMASIA MARKED; MICROCYTOSIS SLIGHT; POLYCHROMASIA MODERATE
[2021-05-01] MEDS: LORazepam 1 MG (ATIVAN) TAB PO SCH (20:38)
[2021-05-01] MEDS: PANTOPRAZOLE 40 MG (PROTONIX) VIAL IV SCH (20:38)
[2021-05-01 22:16] LABS: HEMATOCRIT 21 % (40-54); MEAN CORPUSCULAR HEMOGLOBIN 28 pg (25-34); MEAN CORPUSCULAR HGB CONC 33 g/dL (32-36); MEAN CORPUSCULAR VOLUME 84 fL (80-99); MEAN PLATELET VOLUME 9.6 fL (9.0-12.2); PLATELET COUNT 317 10^3/uL (130-400); WHITE BLOOD COUNT 8.6 10^3/uL (4.3-11.0)
[2021-05-01 22:20] LABS: HEMOGLOBIN 6.8 g/dL (13.3-17.7)
[2021-05-01 22:56] LABS: HEPATITIS C ANTIBODY C Non-Reactive (Non-Reactive)
[2021-05-02] VITALS (7 sets, daily range): BP systolic 110–129; BP diastolic 53–76
[2021-05-02] MEDS: RT-ALBUTEROL/IPRATROPIUM 3 ML (DUONEB) VIAL INH SCH ×4 (02:32→21:06)
[2021-05-02 05:36] LABS: BASOPHILS % (AUTO) 1 % (0-10); EOSINOPHILS # (AUTO) 0.1 10^3/uL (0.0-0.3); EOSINOPHILS % (AUTO) 1 % (0-10); HEMATOCRIT 23 % (40-54); HEMOGLOBIN 7.5 g/dL (13.3-17.7); LYMPHOCYTES # (AUTO) 0.7 10^3/uL (1.0-4.0); LYMPHOCYTES % (AUTO) 8 % (12-44); MEAN CORPUSCULAR HEMOGLOBIN 28 pg (25-34); MEAN CORPUSCULAR HGB CONC 33 g/dL (32-36); MEAN CORPUSCULAR VOLUME 85 fL (80-99); MEAN PLATELET VOLUME 9.1 fL (9.0-12.2); MONOCYTES # (AUTO) 0.8 10^3/uL (0.0-1.0); MONOCYTES % (AUTO) 9 % (0-12); NEUTROPHILS # (AUTO) 6.9 10^3/uL (1.8-7.8); NEUTROPHILS % (AUTO) 80 % (42-75); PLATELET COUNT 295 10^3/uL (130-400); WHITE BLOOD COUNT 8.7 10^3/uL (4.3-11.0)
[2021-05-02 06:00] LABS: ALBUMIN 3.4 GM/DL (3.2-4.5); POTASSIUM 3.8 MMOL/L (3.6-5.0)
[2021-05-02 06:02] LABS: CALCIUM 8.3 MG/DL (8.5-10.1)
[2021-05-02 06:03] LABS: TOTAL PROTEIN 5.7 GM/DL (6.4-8.2)
[2021-05-02 06:05] LABS: BILIRUBIN,TOTAL 1.1 MG/DL (0.1-1.0)
[2021-05-02 06:06] LABS: PHOSPHORUS 4.2 MG/DL (2.3-4.7)
[2021-05-02 06:07] LABS: CREATININE SERUM 0.68 MG/DL (0.60-1.30)
[2021-05-02 06:10] LABS: MAGNESIUM 2.2 MG/DL (1.6-2.4)
[2021-05-02] MEDS: POTASSIUM CL 10MEQ/50ML IVPB 50 ML IV SCH (06:17)
[2021-05-02] MEDS: MAGNESIUM 1 GM/100 ML IVPB 100 ML IV SCH (06:18)
[2021-05-02] MEDS: CATHETER FLUSH 10 ML SYR IVP SCH ×3 (06:18→21:18)
[2021-05-02] MEDS: KCL 20 MEQ TAB (K-DUR) PO SCH (06:18)
[2021-05-02] MEDS ORDERED: LACTATED RINGERS 1,000 ML IV ONE (09:05)
[2021-05-02] MEDS ORDERED: LACTATED RINGERS 1,000 ML IV STA (09:32)
[2021-05-02] MEDS ORDERED: HURRICAINE EXT TUBE (BENZOCAINE) XX PRN (09:45)
[2021-05-02] MEDS ORDERED: LIDOCAINE JELLY 2% 6 ML SYRINGE MM PRN (09:45)
[2021-05-02] MEDS ORDERED: PROPOFOL INJECTION 50 ML IV ONE ×2 (09:57→10:18)
[2021-05-02] MEDS ORDERED: MIDAZOLAM 2 MG/2 ML (VERSED) VIAL ONE (09:57)
--- NOTE | 2021-05-02 10:49 | Tele-ICU Progress Note ---
Subjective Date Seen by a Provider: May 02, 2021 Time Seen by a Provider: 09:09 Subjective/Events-last exam (Tele-ICU Physician , Progress Note ) Available chart/ vitals / labs / Images reviewed Video assessment done using teleICU camera, rest of exam as per RN Discussed with RN , EXAM PER RN Events overnight : , additional 1 U transfused Afebrile FiO2 - RA I/O = + Drips: Pressors: , hemodynamically stable Consultants: sx Hospital course: (04/30) 60y/M in with severe anemia Hg<3.0. pr has lactic acidosis. hypotensive 2/2 anemia= s/p 4U PRBC transfusion 05/01- hb 7.0 , normotensive , additional 1 U transfused A /P ABLA -s/p 4U PRBC transfusion ,hb 7.0 , normotensive- follow - no active GIB now GIB, - sx consulted, planned for : - EGD 05/02 -colonoscopy 05/02 -PPI IV bid Hemorrahic shock - resolved Hyponatremia - most likely due to hyp[ovolemia - resolved TSH wnl CM with pericard and plural effusion - monitor off IVF - card w/up as per PCP Lines : (Central Line Necessity Reviewed) Olivera: void OG: Nutrition: npo Analgesia: Anxiety/ delirium VTE Prophylaxis: scd Stress Ulcer Prophylaxis: Plans in collaboration with bedside consultants and IM MDs. Discussed with RN to reach out if any questions or concerns A total of 31 minutes of critical care time was devoted to this patient today, required to treat and/or prevent further deterioration of critical care condition ( as above) . Sepsis Event Evaluation Height, Weight, BMI Height: 5'11.00" Weight: 210lbs. oz. [id number]; 29.75 BMI Method: Focused Exam Lactate Level 04/30/21 21:25: Lactic Acid Level 5.71*H 05/01/21 00:23: Lactic Acid Level 2.57*H 05/01/21 03:05: Lactic Acid Level 0.83 Exam Exam Patient acknowledged, consented, and participated in this virtual visit which was conducted using real time audio/video Vital Signs Date Time Temp Pulse Resp B/P (MAP) Pulse Ox O2 Delivery O2 Flow Rate FiO2 05/02/21 08:00 36.7 05/02/21 07:00 77 14 127/68 Room Air 05/02/21 07:00 87 05/02/21 06:44 92 Room Air 05/02/21 06:00 80 18 146/81 Room Air 05/02/21 05:00 76 39 130/69 Room Air 05/02/21 04:00 94 Room Air 05/02/21 04:00 87 13 129/64 Room Air 05/02/21 03:32 36.9 05/02/21 03:32 36.9 81 115/57 05/02/21 03:00 80 11 117/53 Room Air 05/02/21 02:32 99 Room Air 05/02/21 02:00 77 33 122/73 96 Room Air 05/02/21 01:00 84 28 111/62 97 Room Air 05/02/21 01:00 84 05/02/21 00:32 36.2 80 17 111/53 93 Room Air 05/02/21 00:23 36.6 82 13 129/73 93 Room Air 05/02/21 00:22 94 Room Air 05/02/21 00:17 36.6 82 13 129/73 97 Room Air 05/02/21 00:00 79 15 90 Room Air 05/01/21 23:00 88 34 134/96 94 Room Air 05/01/21 22:19 99 Room Air 05/01/21 22:01 78 12 127/68 Room Air 05/01/21 21:00 86 24 100/64 Room Air 05/01/21 20:00 36.8 05/01/21 20:00 82 126/63 Room Air 05/01/21 19:45 94 Room Air 05/01/21 19:00 86 05/01/21 19:00 86 17 125/51 Room Air 05/01/21 18:00 84 18 128/63 96 Room Air 05/01/21 17:00 92 20 139/58 98 Room Air 05/01/21 16:00 87 23 131/46 97 Room Air 05/01/21 15:58 36.3 05/01/21 15:09 94 Room Air 05/01/21 15:00 81 10 135/66 97 Room Air 05/01/21 14:33 98 Room Air 05/01/21 14:00 79 14 144/73 95 Room Air 05/01/21 13:00 87 17 144/75 92 Room Air 05/01/21 13:00 81 05/01/21 12:00 36.9 05/01/21 12:00 74 16 147/69 91 Room Air 05/01/21 11:09 94 Room Air 05/01/21 11:00 78 19 129/71 95 Room Air I & O 05/02/21 07:00 Intake Total 1000 ml Output Total 1800 ml Balance -800 ml Height & Weight Height: 5'11.00" Weight: 210lbs. oz. 95.930612pv; 29.75 BMI Method: General Appearance: No Apparent Distress, WD/WN HEENT: PERRL/EOMI, Pharynx Normal Neck: Full Range of Motion, Normal Inspection, Non Tender, Supple Respiratory: Chest Non Tender, Lungs Clear, Normal Breath Sounds, No Accessory Muscle Use, No Respiratory Distress Cardiovascular: Regular Rate, Rhythm, Normal Peripheral Pulses Capillary Refill: Less Than 3 Seconds Extremity: Normal Capillary Refill, Normal Inspection, Normal Range of Motion, Non Tender, No Calf Tenderness, No Pedal Edema Neurologic/Psychiatric: Alert, Oriented x3, No Motor/Sensory Deficits, Normal Mood/Affect Skin: Warm/Dry, Pallor (slight) Lymphatic: No Adenopathy Results Lab Laboratory Tests 04/30/21 20:45 04/30/21 21:25 05/01/21 00:23 05/01/21 03:05 05/01/21 09:00 05/01/21 12:45 05/01/21 22:01 05/02/21 05:29 Assessment/Plan Assessment/Plan ` BO RUFFIN MD May 02, 2021 10:49
--- NOTE | 2021-05-02 10:54 | Anesthesia-General Post-Op ---
MAC Patient Condition Mental Status/LOC: Same as Preop Cardiovascular: Satisfactory Nausea/Vomiting: Absent Respiratory: Satisfactory Pain: Controlled Complications: Absent Post Op Complications Complications None Follow Up Care/Instructions Patient Instructions None needed. Anesthesiology Discharge Order Discharge Order Patient is doing well, no complaints, stable vital signs, no apparent adverse anesthesia problems. No complications reported per nursing. GIN GOLD CRNA May 02, 2021 10:54
--- NOTE | 2021-05-02 11:25 | Progress Note-Post Operative ---
Post-Operative Progess Note Surgeon (s)/Accountant Supervisor (s) Surgeon COLE LUNSFORD MD Accountant Supervisor: none Pre-Operative Diagnosis anemia, hx GERD, hx polyp Post-Operative Diagnosis reflux esophagitis(grade C), moderate-large HH(4cm), moderate gastritis. stage 3 internal hemorrhoids with active bleed, moderate sigmoid diverticulosis. Procedure & Operative Findings Date of Procedure 05/02/21 Procedure Performed/Findings EGD with bx. Colonoscopy with banding Anesthesia Type mac Estimated Blood Loss Estimated blood loss (mL): minimal Specimens/Packing Specimens Removed ge jxn, antrum COLE LUSNFORD MD May 02, 2021 11:25
[2021-05-02] MEDS: MAGNESIUM CITRATE 300 ML BTL PO SCH (11:57)
[2021-05-02] MEDS: doxAzosin 2 MG (CARDURA) TAB PO SCH (11:57)
[2021-05-02] MEDS: NICOTINE 14 MG (NICODERM) PATCH TD SCH (11:57)
[2021-05-02] MEDS: PANTOPRAZOLE 40 MG (PROTONIX) VIAL IV SCH ×2 (11:57→21:18)
[2021-05-02] MEDS: NICOTINE PATCH REMOVAL TP SCH (11:57)
--- NOTE | 2021-05-02 14:27 | OPERATIVE REPORT ---
DATE OF SERVICE: 05/02/2021 ATTENDING PRIMARY CARE PHYSICIAN: Dr. Mane. PREOPERATIVE DIAGNOSIS: Severe anemia, rectal bleeding and peptic ulcer disease. POSTOPERATIVE DIAGNOSES: Reflux esophagitis, [place] grade C, moderate to large size hiatal hernia approximately 4 cm in size, moderate gastritis, stage III internal hemorrhoids with active bleeding. Moderate sigmoid diverticulosis. PROCEDURE: EGD with biopsy, colonoscopy with hemorrhoidal banding. SURGEON: Cole Lunsford MD ANESTHESIA: Monitored anesthesia care. ESTIMATED BLOOD LOSS: Minimal. FINDINGS: Reflux esophagitis, [place] grade C, moderate to large size hiatal hernia approximately 4 cm in size, moderate gastritis, stage III internal hemorrhoids with active bleeding. Moderate sigmoid diverticulosis. DISPOSITION: The patient tolerated the procedure well. INDICATIONS: The patient is a 60-year-old male who was brought to the Emergency Department with severe fatigue. He states that he has had these types of symptoms on an intermittent basis for the past several weeks. He also has reported blood per rectum and upon admission, his hemoglobin was severely low at 3.6 and he underwent 4 units of packed red blood cells and his hemoglobin did increase appropriately. He does have a history of peptic ulcer disease and taking Protonix. His last colonoscopy was over 10 years ago and remembers polyps being identified. He also does report red blood per rectum. DESCRIPTION OF PROCEDURE: The patient was brought to the operating room, laid in left lateral decubitus position. After adequate IV pain and sedative medications and monitored anesthesia care, the mouthpiece was applied. The endoscope was placed in the mouth, visualizing the pharynx and hypopharyngeal region. Vocal cords, epiglottis and vallecula identified and appeared to be normal. The endoscope was then gently abated esophageal opening and esophagus insufflated. The endoscope was then advanced to the first, second and third portion of esophagus at the level of the GE junction, a reflux esophagitis, [place] grade C identified. A biopsy was taken with forceps with visualization of good hemostasis. The endoscope was then advanced through the stomach and endoscope retroflexed, visualizing a moderate to large size hiatal hernia approximately 4 cm in size. This appeared to be a type 3 hiatal hernia. There was a moderate severity gastritis with some superficial erosions of the pylorus; however, no formal ulcerations or any active bleeding. A biopsy was taken of the antrum to rule out H. pylori with visualization of good hemostasis. There were no duodenal ulcers. The endoscope was then slowly withdrawn while taking a second look and suctioning of residual air with no additional findings. A digital rectal examination was performed. Significant stage III internal hemorrhoids were identified, which were actively bleeding. Normal sphincter tone was felt. There were no hard masses. Prostate gland was palpable and appeared normal. The endoscope was then intubated and anus and rectum gently insufflated. The endoscope was then advanced through the valves of Valdes of the rectum with no polyps or any neoplasms identified. Through the sigmoid colon, a moderate sigmoid diverticulosis identified. No active bleeding. The endoscope was then advanced and remainder of the descending, transverse and ascending colon to the cecum, which were normal. The endoscope was then slowly withdrawn while taking a second look and suctioning of residual air with no additional findings. We then proceeded with hemorrhoidal banding. The anoscopy was performed and there were two larger stage III internal hemorrhoids identified, which were banded with visualization of good hemostasis. The anoscope was then removed. The patient tolerated the procedure well. We will recommend the necessary lifestyle and dietary accommodation including small and more frequent meals, avoidance of eating at night as well as head of the elevation while lying supine. He is already on Protonix. We will also add omeprazole 40 mg daily. He needs to proceed with the necessary lifestyle and dietary accommodation including alcohol and smoking cessation as well as avoidance of caffeinated beverages, spicy, greasy and acidic foods. We will also recommend a high fiber diet with incorporation of a fiber supplement, which should equal or exceed 30 grams daily as well as significant amounts of water to promote soft stools on a daily basis. He also does have a first-degree family history of colon cancer and we will recommend a followup colonoscopy in at least 5 years. Job ID: [id number] DocumentID: [id number] Dictated Date: 05/02/2021 11:30:45 Napping Machine Operator Date: 05/02/2021 14:27:29 Dictated By: COLE LUNSFORD MD
--- NOTE | 2021-05-02 19:51 | Progress Note ---
Subjective Subjective Date Seen by Provider: May 02, 2021 Time Seen by Provider: 08:20 Pt is a 60 y/o male who was admitted for severe anemia. The patient reports that he is feeling better today. He denies chest pain, shortness of breath, has some mild right upper abdominal discomfort. He denies bloody stools. He reports that his energy seems to be a little better and his restless legs are better as well. Review of Systems General: No Chills, No Night Sweats; Fatigue; No Malaise HEENT: No Head Aches Pulmonary: No Dyspnea, No Cough Cardiovascular: No: Chest Pain, Palpitations, Lt Headedness Gastrointestinal: Abdominal Pain; No: Nausea, Vomiting, Diarrhea, Constipation, Melena, Hematochezia Genitourinary: No Dysuria, No Hematuria Neurological: No: Weakness, Numbness All Other Systems Reviewed All Other Systems Reviewed: Yes Objective Exam Vital Signs Vital Signs Date Time Temp Pulse Resp B/P (MAP) Pulse Ox O2 Delivery O2 Flow Rate FiO2 05/02/21 16:00 36.6 101 18 135/67 93 Room Air 05/02/21 15:46 Room Air 05/02/21 14:49 100 Nasal Cannula 2.00 05/02/21 13:00 77 16 95 Room Air 05/02/21 13:00 75 05/02/21 12:00 36.3 05/02/21 12:00 80 19 94 Room Air 05/02/21 11:50 86 21 139/72 96 Room Air 05/02/21 11:10 79 16 92 Room Air 05/02/21 11:05 80 16 94 OxyMask 05/02/21 11:00 82 16 91 Room Air 05/02/21 10:55 79 20 98 OxyMask 05/02/21 09:00 92 27 Room Air 05/02/21 08:00 77 14 127/68 Room Air 05/02/21 08:00 95 Room Air 05/02/21 08:00 36.7 05/02/21 07:00 77 14 127/68 Room Air 05/02/21 07:00 87 05/02/21 06:44 92 Room Air 05/02/21 06:00 80 18 146/81 Room Air 05/02/21 05:00 76 39 130/69 Room Air 05/02/21 04:00 94 Room Air 05/02/21 04:00 87 13 129/64 Room Air 05/02/21 03:32 36.9 05/02/21 03:32 36.9 81 115/57 05/02/21 03:00 80 11 117/53 Room Air 05/02/21 02:32 99 Room Air 05/02/21 02:00 77 33 122/73 96 Room Air 05/02/21 01:00 84 28 111/62 97 Room Air 05/02/21 01:00 84 05/02/21 00:32 36.2 80 17 111/53 93 Room Air 05/02/21 00:23 36.6 82 13 129/73 93 Room Air 05/02/21 00:22 94 Room Air 05/02/21 00:17 36.6 82 13 129/73 97 Room Air 05/02/21 00:00 79 15 90 Room Air 05/01/21 23:00 88 34 134/96 94 Room Air 05/01/21 22:19 99 Room Air 05/01/21 22:01 78 12 127/68 Room Air 05/01/21 21:00 86 24 100/64 Room Air 05/01/21 20:00 36.8 05/01/21 20:00 82 126/63 Room Air 05/01/21 19:45 94 Room Air I & O 05/02/21 07:00 Intake Total 1000 ml Output Total 1800 ml Balance -800 ml General Appearance: No Apparent Distress, WD/WN HEENT: PERRL/EOMI, Pharynx Normal Neck: Full Range of Motion, Normal Inspection, Non Tender, Supple Respiratory: Chest Non Tender, Lungs Clear, Normal Breath Sounds, No Accessory Muscle Use, No Respiratory Distress Cardiovascular: Regular Rate, Rhythm, Normal Peripheral Pulses Gastrointestinal: Normal Bowel Sounds, No Organomegaly, No Pulsatile Mass, Soft, Tenderness (very mild in right upper abdomen) Rectal: Normal Rectal Tone, Heme Positive Stool; No Hemorrhoids, No Mass, No Tenderness Back: Normal Inspection, No CVA Tenderness, No Vertebral Tenderness Extremity: Normal Capillary Refill, Normal Inspection, Normal Range of Motion, Non Tender, No Calf Tenderness, No Pedal Edema Neurologic/Psychiatric: Alert, Oriented x3, No Motor/Sensory Deficits, Normal Mood/Affect Skin: Warm/Dry, Pallor (slight) Lymphatic: No Adenopathy Results Lab Laboratory Tests 05/01/21 22:01: White Blood Count 8.6, Red Blood Count 2.44L, Hemoglobin 6.8*L, Hematocrit 21L, Mean Corpuscular Volume 84, Mean Corpuscular Hemoglobin 28, Mean Corpuscular Hemoglobin Concent 33, Red Cell Distribution Width 16.9H, Platelet Count 317, Mean Platelet Volume 9.6 05/02/21 05:29: White Blood Count 8.7, Red Blood Count 2.68L, Hemoglobin 7.5L, Hematocrit 23L, Mean Corpuscular Volume 85, Mean Corpuscular Hemoglobin 28, Mean Corpuscular Hemoglobin Concent 33, Red Cell Distribution Width 16.9H, Platelet Count 295, Mean Platelet Volume 9.1, Immature Granulocyte % (Auto) 1, Neutrophils (%) (Auto) 80H, Lymphocytes (%) (Auto) 8L, Monocytes (%) (Auto) 9, Eosinophils (%) (Auto) 1, Basophils (%) (Auto) 1, Neutrophils # (Auto) 6.9, Lymphocytes # (Auto) 0.7L, Monocytes # (Auto) 0.8, Eosinophils # (Auto) 0.1, Basophils # (Auto) 0.0, Immature Granulocyte # (Auto) 0.0, Sodium Level 136, Potassium Level 3.8, Chlor drew Level 105, Carbon Dioxide Level 21, Anion Gap 10, Blood Urea Nitrogen 6L, Creatinine 0.68, Estimat Glomerular Filtration Rate 105, BUN/Creatinine Ratio 9, Glucose Level 100, Calcium Level 8.3L, Corrected Calcium 8.8, Phosphorus Level 4.2, Magnesium Level 2.2, Total Bilirubin 1.1H, Aspartate Amino Transf (AST/SGOT) 19, Alanine Aminotransferase (ALT/SGPT) 16, Alkaline Phosphatase 68, Total Protein 5.7L, Albumin 3.4 Microbiology 04/30/21 MRSA Screen - Final, Complete MRSA not isolated 04/30/21 Blood Culture - Preliminary, Resulted No growth Assessment/Plan Assessment/Plan Admission Dx Extreme Anemia Hyponatremia Chronic Hypertension Chronic Esophageal reflux Hyperlipidemia BPH Anxiety Restless legs due to iron deficiency Assessment and Plan Extreme Anemia Hyponatremia Chronic Hypertension Chronic Esophageal reflux Hyperlipidemia BPH Anxiety Restless legs due to iron deficiency Extreme Anemia - suspect GI loss of blood - consult to Dr. Gutierrez for Colonoscope - after 5 units of blood - hgb up to 7.5, repeat labs tonight and again in the morning. Discussed with Dr. Calderon - pt does not need a bone marrow biopsy at this time. - consult to Hematology/Oncology. - peripheral smear pending Hyponatremia - slightly improved - monitor with repeat labs. Chronic Hypertension - resume home regimen Chronic Esophageal reflux - pantoprazole 40mg bid started. Hyperlipidemia - hold lipitor for now - will contribute to fatigue. BPH - will address as outpatient - pt on doxazosin. Anxiety - resume ativan Restless legs due to iron deficiency - monitor - gave dose of requip today GI prophylaxis with ppi DVT prophylaxis with scd's - not on lovenox due to suspected GI bleed. Admission Dx Extreme Anemia Hyponatremia Chronic Hypertension Chronic Esophageal reflux Hyperlipidemia BPH Anxiety Restless legs due to iron deficiency Clinical Quality Measures Admission Status Admission Dx Extreme Anemia Hyponatremia Chronic Hypertension Chronic Esophageal reflux Hyperlipidemia BPH Anxiety Restless legs due to iron deficiency MÓNICA MELISSA MD May 02, 2021 19:51
[2021-05-02] MEDS ORDERED: rOPINIRole 0.25 MG (REQUIP) TAB PO PRN (20:00)
[2021-05-02] MEDS: LORazepam 1 MG (ATIVAN) TAB PO SCH (21:18)
[2021-05-02 22:17] LABS: HEMOGLOBIN 7.5 g/dL (13.3-17.7)
[2021-05-03] MEDS: RT-ALBUTEROL/IPRATROPIUM 3 ML (DUONEB) VIAL INH SCH ×2 (02:11→06:47)
[2021-05-03 06:04] LABS: BASOPHILS % (AUTO) 0 % (0-10); EOSINOPHILS # (AUTO) 0.1 10^3/uL (0.0-0.3); EOSINOPHILS % (AUTO) 1 % (0-10); HEMATOCRIT 24 % (40-54); HEMOGLOBIN 7.8 g/dL (13.3-17.7); LYMPHOCYTES # (AUTO) 0.9 10^3/uL (1.0-4.0); LYMPHOCYTES % (AUTO) 7 % (12-44); MEAN CORPUSCULAR HEMOGLOBIN 29 pg (25-34); MEAN CORPUSCULAR HGB CONC 33 g/dL (32-36); MEAN CORPUSCULAR VOLUME 87 fL (80-99); MEAN PLATELET VOLUME 9.5 fL (9.0-12.2); MONOCYTES % (AUTO) 8 % (0-12); NEUTROPHILS # (AUTO) 9.9 10^3/uL (1.8-7.8); NEUTROPHILS % (AUTO) 83 % (42-75); PLATELET COUNT 346 10^3/uL (130-400); WHITE BLOOD COUNT 11.9 10^3/uL (4.3-11.0)
[2021-05-03 06:13] LABS: ALBUMIN 3.4 GM/DL (3.2-4.5); POTASSIUM 3.5 MMOL/L (3.6-5.0)
[2021-05-03 06:14] LABS: CALCIUM 8.3 MG/DL (8.5-10.1)
[2021-05-03 06:15] LABS: TOTAL PROTEIN 5.9 GM/DL (6.4-8.2)
[2021-05-03 06:17] LABS: BILIRUBIN,TOTAL 0.9 MG/DL (0.1-1.0)
[2021-05-03 06:19] LABS: CREATININE SERUM 0.73 MG/DL (0.60-1.30)
[2021-05-03] MEDS: POTASSIUM CL 10MEQ/50ML IVPB 50 ML IV SCH (06:23)
[2021-05-03] MEDS: MAGNESIUM 1 GM/100 ML IVPB 100 ML IV SCH (06:23)
[2021-05-03] MEDS: KCL 20 MEQ TAB (K-DUR) PO SCH (06:23)
[2021-05-03] MEDS: CATHETER FLUSH 10 ML SYR IVP SCH (06:23)
[2021-05-03] MEDS ORDERED: KCL 20 MEQ TAB (K-DUR) PO ONE ×2 (06:30→08:30)
[2021-05-03 08:00] VITALS: BP 137/64
[2021-05-03] MEDS: NICOTINE 14 MG (NICODERM) PATCH TD SCH (08:55)
[2021-05-03] MEDS: NICOTINE PATCH REMOVAL TP SCH (08:55)
[2021-05-03] MEDS: PANTOPRAZOLE 40 MG (PROTONIX) VIAL IV SCH (08:56)
[2021-05-03] MEDS ORDERED: IRON SUCROSE 200 MG/10 ML (VENOFER) VIAL IV NR (09:00)
[2021-05-03] MEDS: doxAzosin 2 MG (CARDURA) TAB PO SCH (09:07)
--- NOTE | 2021-05-03 09:29 | Discharge Summary ---
Diagnosis/Chief Complaint Date of Admission Apr 30, 2021 at 22:00 Date of Discharge Reason Hospital Visit Pt is a 60 y/o male who is known to me from previously being a patient in clinic. Willem (pt goes by Fabienne) - has not been to the office since 10/2018. Pt reports that he has been receiving his healthcare at the [facility]. The pt and his dtr report that he had a URI about 3 weeks ago, was feeling in his usual state of health until the illness. He was treated with antibiotics and steroids, but his fatigue lingered. The patients daughter, Daisha, reports that she had been told that he was "looking horrible" and he denied feeling poorly, just wiped out. However, more friends called his dtr reporting that he appeared short of breath and very pale, she came down to check on him and she noted that he was so pale he looked like a corpse at a , could not get an oxygen saturation on him so she brought h im to the ER. The ER physician reports that Fabienne had extreme pallor, and they immediately naresh labs, had him typed and crossmatched and the lab called to report "undetectable" hgb and plts. The reported Hgb was 3.0. Fabienne was admitted for blood transfusion, gi tract evaluation and supportive care for his cardiovascular system. Today he reports very restless leg, and also fatigue, but feels better than on admission, his dtr notes his color is much improved. Discharge Summary Discharge Physical Examination Allergies: Coded Allergies: No Known Drug Allergies (Unverified , 09/10/13) Vitals & I&Os Vital Signs Date Time Temp Pulse Resp B/P (MAP) Pulse Ox O2 Delivery O2 Flow Rate FiO2 05/03/21 09:16 Room Air 05/03/21 08:00 36.8 88 16 137/64 (88) 91 05/02/21 14:49 2.00 05/01/21 00:30 21 Hospital Course Pending Labs Laboratory Tests 05/03/21 05:45: White Blood Count 11.9, Red Blood Count 2.73, Hemoglobin 7.8, Hematocrit 24, Mean Corpuscular Volume 87, Mean Corpuscular Hemoglobin 29, Mean Corpuscular Hemoglobin Concent 33, Red Cell Distribution Width 18.4, Platelet Count 346, Mean Platelet Volume 9.5, Immature Granulocyte % (Auto) 0, Neutrophils (%) (Auto) 83, Lymphocytes (%) (Auto) 7, Monocytes (%) (Auto) 8, Eosinophils (%) (Auto) 1, Basophils (%) (Auto) 0, Neutrophils # (Auto) 9.9, Lymphocytes # (Auto) 0.9, Monocytes # (Auto) 1.0, Eosinophils # (Auto) 0.1, Basophils # (Auto) 0.0, Immature Granulocyte # (Auto) 0.1, Sodium Level 134, Potassium Level 3.5, Chloride Level 105, Carbon Dioxide Level 19, Anion Gap 10, Blood Urea Nitrogen 7, Creatinine 0.73, Estimat Glomerular Filtration Rate 103, BUN/Creatinine Ratio 10, Glucose Level 97, Calcium Level 8.3, Corrected Calcium 8.8, Phosphorus Level 4.0, Magnesium Level 2.0, Total Bilirubin 0.9, Aspartate Amino Transf (AST/SGOT) 17, Alanine Aminotransferase (ALT/SGPT) 18, Alkaline Phosphatase 71, Total Protein 5.9, Albumin 3.4 Discharge Instructions to patient/family Please see electronic discharge instructions given to patient. Discharge Medications Reviewed and agree with Discharge Medication list on patient's Discharge Instruction sheet MÓNICA MELISSA MD May 03, 2021 09:29
[2021-05-03] MEDS ORDERED: PANT40TA52 PO (09:31)
[2021-05-03] MEDS ORDERED: ROPI0.253 PO (09:31)
--- NOTE | 2021-05-03 09:32 | Discharge Inst-Simple/Standard ---
Discharge Inst-Standard Reconcile Patient Problems Problems Reviewed?: Yes Discharge Medications New, Converted or Re-Newed RX: Transmitted to Pharmacy Patient Instructions/Follow Up Plan of Care/Instructions/FU: 1 [facility] [address] LUNSFORD [address] [place]GR[place] CBC, CMP ON 05/07/21 Activity as Tolerated: Yes Discharge Diet: Regular Diet (HIGH FIBER ) Return to The Hospital For: ANY RECURRENT BLEEDING, ANY SEVERE WEAKNESS, OR SHORTNESS OF BREATH, OR ANY LIFETHREATENING ILLNESS OR INJURY MÓNICA MELISSA MD May 03, 2021 09:32
== END 2021-05-03 10:20 | disposition home or self-care (01) | DRG 347 ==
LOC: EDUNIT# 20:30 → ER 20:33 → ICU 22:00 → 4TH 05-02 15:25
PROVIDERS: ADMIT Family Medicine; ATTEND Family Medicine
PROC: 0DB68ZX Excision of Stomach, Via Natural or Artificial Opening Endoscopic, Diagnostic (ICD-10-PCS; 2021-05-02)
PROC: 0DB48ZX Excision of Esophagogastric Junction, Via Natural or Artificial Opening Endoscopic, Diagnostic (ICD-10-PCS; principal; 2021-05-02 10:03)
PROC: 06LY8CC Occlusion of Hemorrhoidal Plexus with Extraluminal Device, Via Natural or Artificial Opening Endoscopic (ICD-10-PCS; 2021-05-02 10:03)
DX: K21.01 Gastro-esophageal reflux disease with esophagitis, with bleeding (principal); R57.8 Other shock; K57.31 Diverticulosis of large intestine without perforation or abscess with bleeding; K29.71 Gastritis, unspecified, with bleeding; E87.1 Hypo-osmolality and hyponatremia; D62 Acute posthemorrhagic anemia; E78.5 Hyperlipidemia, unspecified; N40.0 Benign prostatic hyperplasia without lower urinary tract symptoms; G25.81 Restless legs syndrome; E61.1 Iron deficiency; M19.90 Unspecified osteoarthritis, unspecified site; F17.210 Nicotine dependence, cigarettes, uncomplicated; Z79.899 Other long term (current) drug therapy; K44.9 Diaphragmatic hernia without obstruction or gangrene; K64.2 Third degree hemorrhoids; Z20.822 Contact with and (suspected) exposure to COVID-19
CPT/HCPCS: 36415; 36430; 71045; 71250; 74177; 80053; 82607; 82728; 83540; 83550; 83605; 83735; 83880; 84100; 84145; 84443; 84484; 85007; 85014; 85018; 85025; 85027; 85045; 85055; 85610; 85730; 86703; 86803; 86850; 86900; 86901; 86920; 87040; 87081; 87636; 93005; 94640; 96361; 96374; 99291

== ENCOUNTER → 2021-05-07 | Outpatient (CLI) | payer BC ==
[~2021-05-07] MED LIST changes: +ATOR80TA76 PO; +DILT300C52 PO; +DOXA2TAB2 PO; +LORA-405 PO; +LOSA1TAB26 PO; +MELO15TA39 PO; +PANT40TA52 PO; +POLY17PO6 PO; +ROPI0.253 PO; +SILD20TA14 PO
[2021-05-07 09:51] LABS: BASOPHILS % (AUTO) 1 % (0-10); EOSINOPHILS # (AUTO) 0.1 10^3/uL (0.0-0.3); EOSINOPHILS % (AUTO) 2 % (0-10); HEMATOCRIT 30 % (40-54); HEMOGLOBIN 9.3 g/dL (13.3-17.7); LYMPHOCYTES # (AUTO) 0.7 10^3/uL (1.0-4.0); LYMPHOCYTES % (AUTO) 11 % (12-44); MEAN CORPUSCULAR HEMOGLOBIN 28 pg (25-34); MEAN CORPUSCULAR HGB CONC 32 g/dL (32-36); MEAN CORPUSCULAR VOLUME 89 fL (80-99); MEAN PLATELET VOLUME 8.9 fL (9.0-12.2); MONOCYTES # (AUTO) 0.6 10^3/uL (0.0-1.0); MONOCYTES % (AUTO) 9 % (0-12); NEUTROPHILS # (AUTO) 4.7 10^3/uL (1.8-7.8); NEUTROPHILS % (AUTO) 77 % (42-75); PLATELET COUNT 361 10^3/uL (130-400); WHITE BLOOD COUNT 6.2 10^3/uL (4.3-11.0)
[2021-05-07 10:06] LABS: BILIRUBIN,TOTAL 0.5 MG/DL (0.1-1.0); CALCIUM 8.9 MG/DL (8.5-10.1); CREATININE SERUM 0.73 MG/DL (0.60-1.30); POTASSIUM 4.2 MMOL/L (3.6-5.0)
== END ==
LOC: LAB 09:14
PROVIDERS: ATTEND Family Medicine
DX: R57.8 Other shock (principal)
CPT/HCPCS: 36415; 80053; 85025

== ENCOUNTER 2021-05-27 14:50 | Emergency (ER) | payer BC ==
[~2021-05-27] VITALS: Ht 180 cm; Wt 92.0 kg
[2021-05-27] MEDS ORDERED: NS IV 1000 ML 1,000 ML IV SCH (15:00)
[2021-05-27 15:12] LABS: BASOPHILS # (AUTO) 0.1 10^3/uL (0.0-0.1); BASOPHILS % (AUTO) 1 % (0-10); EOSINOPHILS # (AUTO) 0.1 10^3/uL (0.0-0.3); EOSINOPHILS % (AUTO) 1 % (0-10); HEMATOCRIT 34 % (40-54); HEMOGLOBIN 10.7 g/dL (13.3-17.7); LYMPHOCYTES # (AUTO) 1.3 10^3/uL (1.0-4.0); LYMPHOCYTES % (AUTO) 12 % (12-44); MEAN CORPUSCULAR HEMOGLOBIN 27 pg (25-34); MEAN CORPUSCULAR HGB CONC 31 g/dL (32-36); MEAN CORPUSCULAR VOLUME 86 fL (80-99); MONOCYTES # (AUTO) 0.8 10^3/uL (0.0-1.0); MONOCYTES % (AUTO) 8 % (0-12); NEUTROPHILS % (AUTO) 77 % (42-75); PLATELET COUNT 292 10^3/uL (130-400); WHITE BLOOD COUNT 10.4 10^3/uL (4.3-11.0)
[2021-05-27 15:20] LABS: ALBUMIN 4.5 GM/DL (3.2-4.5); POTASSIUM 3.8 MMOL/L (3.6-5.0)
[2021-05-27 15:22] LABS: CALCIUM 9.3 MG/DL (8.5-10.1)
[2021-05-27 15:23] LABS: BILIRUBIN,URINE NEGATIVE (NEGATIVE); CLARITY,URINE CLEAR; COLOR,URINE YELLOW; GLUCOSE, URINE (UA) NEGATIVE (NEGATIVE); KETONES,URINE NEGATIVE (NEGATIVE); LEUKOCYTE ESTERASE ,URINE NEGATIVE (NEGATIVE); NITRITE,URINE NEGATIVE (NEGATIVE); PROTEIN,URINE NEGATIVE (NEGATIVE)
[2021-05-27 15:23] LABS: TOTAL PROTEIN 7.3 GM/DL (6.4-8.2)
--- NOTE | 2021-05-27 15:23 | ED Syncope ---
General Chief Complaint: Dizziness/Syncope Stated Complaint: SYNCOPE X2,LOW BP History of Present Illness Date Seen by Provider: May 27, 2021 Time Seen by Provider: 14:55 Initial Comments 60-year-old male presents by private vehicle after syncopal episode at home. He reports getting extremely weak and feeling as though he was going to faint, he was at a friend's Easter event. He denies nausea, vomiting, chest pain, headache or diaphoresis. He fell to the ground but did not injure his head. He does not recall completely blacking out. Friends were around him the entire time. EMS was called and evaluated he was found to have a blood pressure of 90/60. He was feeling better and declined EMS transport. He was admitted here <1 month ago (04/30/21-05/04/21) for a Hgb of 3.0, which required 5 units of blood to attain 7.5. He had an EGD and colonoscopy, the cause of blood loss was felt to be internal hemorrhoids which had been bleeding. He was evaluated by hematology which did not determine a blood disorder or leukemia, no bone marrow biopsy was indicated. He reports eating today, no history of diabetes. His Accu-Chek on arrival was 116. He is not currently feeling dizzy, his gait is steady. He reports having 2 beers today, no illicit drug use. Timing/Prior Episodes: No Prior History Symptoms Prior to Episode: Lightheadedness Precipitating Factors: None Loss of Consciousness: No Loss of Consciousness Current Symptoms: Back to Normal; No Blurred Vision, No Chest Pain, No Diaphoresis, No Dizziness, No Headache, No Injury, No Lightheadedness, No Loss of Bladder Control, No Loss of Bowel Control, No Nausea, No Pale, No Shallow/Rapid Breathing, No Weak/Absent Pulse, No Weakness Allergies and Home Medications Allergies Coded Allergies: No Known Drug Allergies (Unverified , 09/10/13) Patient Home Medication List Home Medication List Reviewed: Yes Atorvastatin Calcium (Atorvastatin Calcium) 80 Mg Tablet, 80 MG PO DAILY, (Reported) Entered as Reported by: CARLOS RODRIGUEZ on 05/01/21 1020 Diltiazem HCl (Diltiazem 24Hr ER) 300 Mg Cap.er.24h, 300 MG PO DAILY, (Reported) Entered as Reported by: CARLOS RODRIGUEZ on 05/01/21 1020 Doxazosin Mesylate (Doxazosin Mesylate) 2 Mg Tablet, 2 MG PO DAILY, (Reported) Entered as Reported by: CARLOS RODRIGUEZ on 05/01/21 102 Lorazepam (Ativan) 1 Mg Tablet, 1 MG PO HS, (Reported) Entered as Reported by: CARLOS RODRIGUEZ on 05/01/21 102 Lorazepam (Ativan) 1 Mg Tablet, 1 MG PO DAILY PRN for ANXIETY, (Reported) Entered as Reported by: CARLOS RODRIGUEZ on 05/01/21 102 Losartan/Hydrochlorothiazide (Losartan-Hctz 100-12.5 mg Tab) 1 Each Tablet, 1 EA PO DAILY, (Reported) Entered as Reported by: CARLOS RODRIGUEZ on 05/01/21 102 Pantoprazole Sodium (Pantoprazole Sodium) 40 Mg Tablet.dr, 40 MG PO BID Prescribed by: MÓNICA MANE on 05/03/21930 Polyethylene Glycol 3350 (Miralax) 17 Gm Powd.pack, 17 GM PO DAILY PRN for CONSTIPATION-2ND LINE, (Reported) Entered as Reported by: CARLOS RODRIGUEZ on 05/01/21 102 Ropinirole HCl (Ropinirole HCl) 0.25 Mg Tablet, 0.25 MG PO Q8H PRN for RESTLESSNESS Prescribed by: MÓNICA MANE on 05/03/21930 Sildenafil Citrate (Sildenafil) 20 Mg Tablet, 10 MG PO UD PRN for ED, (Reported) Entered as Reported by: CARLOS RODRIGUEZ on 05/01/21 1020 Review of Systems Constitutional: no symptoms reported, see HPI, weakness EENTM: see HPI, no symptoms reported Respiratory: no symptoms reported, see HPI Cardiovascular: no symptoms reported, see HPI; No chest pain Gastrointestinal: no symptoms reported, see HPI Genitourinary: no symptoms reported, see HPI Musculoskeletal: no symptoms reported, see HPI Skin: no symptoms reported, see HPI Psychiatric/Neurological: No Symptoms Reported, See HPI All Other Systems Reviewed Negative Unless Noted: Yes Past Fnjtswx-Ogjnab-Ncfoeu Hx Patient Social History Tobacco Use?: Yes Tobacco type used: Cigarettes Smoking Status: Current Everyday Smoker Smokeless Tobacco Frequency: Heavy User Use of E-Cig and/or Vaping dev: No Substance use?: No Alcohol Use?: Yes Alcohol type: Beer Alcohol Frequency: Daily Pt feels they are or have been: No Immunizations Up To Date First/Initial COVID19 Vaccinat: 03/2020 Second COVID19 Vaccination Geoffrey: 04/2020 Third COVID19 Vaccination Date: 2020 COVID19 Vaccine 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 SURGERY; DENIES. Surgeries: Yes (traumatic pneumothorax) Orthopedic Currently Using CPAP: No Currently Using BIPAP: No Hypertension Sexually Transmitted Disease: No HIV/AIDS: No Chronic Constipation Arthritis Loss of Vision: Denies Hearing Impairment: Denies Sleep Difficulties Blood Disorders: No Adverse Reaction/Blood Tranf: No Family Medical History Reviewed Nursing Family Hx Heart Disease, Cancer, CAD Over 55 Years Old, Hypertension Physical Exam Vital Signs Vital Signs - First Documented 05/27/21 14:59 Temp 35.7 Pulse 84 Resp 18 B/P (MAP) 134/63 (86) Pulse Ox 100 O2 Delivery Room Air Capillary Refill : Height, Weight, BMI Height: 5'11.00" Weight: 210lbs. oz. 95.705768py; 29.75 BMI Method: General Appearance: No Apparent Distress, WD/WN HEENT: PERRL/EOMI, TMs Normal, Normal ENT Inspection, Pharynx Normal Neck: Full Range of Motion, Normal Inspection, Non Tender, Supple Cardiovascular: Regular Rate, Rhythm, No Edema, No Murmur, Normal Peripheral Pulses Respiratory: Chest Non Tender, Lungs Clear, Normal Breath Sounds Gastrointestinal: Normal Bowel Sounds, Non Tender, Soft Extremities: Normal Capillary Refill, Normal Inspection, Normal Range of Motion, No Pedal Edema Neurologic/Psychiatric: Alert, Oriented x3, No Motor/Sensory Deficits, Normal Mood/Affect Cranial Nerves: Normal Hearing, Normal Speech, PERRL Coordination/Gait: Normal Finger to Nose, Normal Gait Motor/Sensory: No Motor Deficit, No Sensory Deficit Skin: Normal Color, Warm/Dry; No Diaphoresis, No Jaundice, No Pallor Lymphatic: No Adenopathy Progress/Results/Core Measures Results/Orders Lab Results Laboratory Tests Test 05/27/21 15:02 05/27/21 15:08 05/27/21 15:17 Range/Units White Blood Count 10.4 4.3-11.0 10^3/uL Red Blood Count 3.97 L 4.30-5.52 10^6/uL Hemoglobin 10.7 L 13.3-17.7 g/dL Hematocrit 34 L 40-54 % Mean Corpuscular Volume 86 80-99 fL Mean Corpuscular Hemoglobin 27 25-34 pg Mean Corpuscular Hemoglobin Concent 31 L 32-36 g/dL Red Cell Distribution Width 19.3 H 10.0-14.5 % Platelet Count 292 130-400 10^3/uL Mean Platelet Volume 9.0 9.0-12.2 fL Immature Granulocyte % (Auto) 1 % Neutrophils (%) (Auto) 77 H 42-75 % Lymphocytes (%) (Auto) 12 12-44 % Monocytes (%) (Auto) 8 0-12 % Eosinophils (%) (Auto) 1 0-10 % Basophils (%) (Auto) 1 0-10 % Neutrophils # (Auto) 8.0 H 1.8-7.8 10^3/uL Lymphocytes # (Auto) 1.3 1.0-4.0 10^3/uL Monocytes # (Auto) 0.8 0.0-1.0 10^3/uL Eosinophils # (Auto) 0.1 0.0-0.3 10^3/uL Basophils # (Auto) 0.1 0.0-0.1 10^3/uL Immature Granulocyte # (Auto) 0.2 H 0.0-0.1 10^3/uL Prothrombin Time 13.0 12.2-14.7 SEC INR Comment 0.9 0.8-1.4 Activated Partial Thromboplast Time 28 24-35 SEC Sodium Level 136 135-145 MMOL/L Potassium Level 3.8 3.6-5.0 MMOL/L Chloride Level 103 98-107 MMOL/L Carbon Dioxide Level 18 L 21-32 MMOL/L Anion Gap 15 H 5-14 MMOL/L Blood Urea Nitrogen 14 7-18 MG/DL Creatinine 1.18 0.60-1.30 MG/DL Estimat Glomerular Filtration Rate 70 BUN/Creatinine Ratio 12 Glucose Level 125 H 70-105 MG/DL Calcium Level 9.3 8.5-10.1 MG/DL Corrected Calcium 8.9 8.5-10.1 MG/DL Total Bilirubin 0.5 0.1-1.0 MG/DL Aspartate Amino Transf (AST/SGOT) 20 5-34 U/L Alanine Aminotransferase (ALT/SGPT) 21 0-55 U/L Alkaline Phosphatase 85 40-136 U/L Troponin I < 0.028 <0.028 NG/ML C-Reactive Protein High Sensitivity 0.11 0.00-0.50 MG/DL Total Protein 7.3 6.4-8.2 GM/DL Albumin 4.5 3.2-4.5 GM/DL Amylase Level 62 25-125 U/L Lipase 37 8-78 U/L Glucometer 116 H 70-110 MG/DL Urine Color YELLOW Urine Clarity CLEAR Urine pH 6.0 5-9 Urine Specific [place] 1.010 L 1.016-1.022 Urine Protein NEGATIVE NEGATIVE Urine Glucose (UA) NEGATIVE NEGATIVE Urine Ketones NEGATIVE NEGATIVE Urine Nitrite NEGATIVE NEGATIVE Urine Bilirubin NEGATIVE NEGATIVE Urine Urobilinogen 0.2 < = 1.0 MG/DL Urine Leukocyte Esterase NEGATIVE NEGATIVE Urine RBC (Auto) NEGATIVE NEGATIVE Urine RBC NONE /HPF Urine WBC RARE /HPF Urine Crystals NONE /LPF Urine Bacteria TRACE /HPF Urine Casts NONE /LPF Urine Mucus NEGATIVE /LPF Urine Culture Indicated NO My Orders Orders - SHY DUTTON Amylase (05/27/21 14:54) Cbc With Automated Diff (05/27/21 14:54) Comprehensive Metabolic Panel (05/27/21 14:54) Hs C Reactive Protein (05/27/21 14:54) Lipase (05/27/21 14:54) Protime With Inr (05/27/21 14:54) Partial Thromboplastin Time (05/27/21 14:54) Ua Culture If Indicated (05/27/21 14:54) Ed Iv/Invasive Line Start (05/27/21 14:54) Ns Iv 1000 Ml (Sodium Chloride 0.9%) (05/27/21 15:00) Ekg Tracing (05/27/21 15:06) Accucheck Stat ONCE (05/27/21 15:06) Troponin I [place] (05/27/21 15:34) Vital Signs/I&O 05/27/21 14:59 Temp 35.7 Pulse 84 Resp 18 B/P (MAP) 134/63 (86) Pulse Ox 100 O2 Delivery Room Air FSBG Bedside Testing Finger Stick Blood Glucose: 116 Blood Glucose Action Taken: PROVIDER NOTIFIED. Progress Progress Note : Time: 14:55 Progress Note Patient seen and evaluated, Accu-Chek 116. Blood pressure stable. Patient alert and oriented. He has full recall of all events. We will check labs, normal saline 1 L per IV and continue to monitor. 1635 labs reviewed with patient, hemoglobin is continuing to improve since last hospitalization. Patient denies any complaints at this time. We will continue to monitor. 1705 patient ambulated in room, no vertigo or other complaints. Stable gait. Discharge instructions and return precautions discussed with the patient and his daughter. All questions answered. Initial ECG Impression Date: May 27, 2021 Initial ECG Impression Time: 15:09 Initial ECG Rate: 74 Initial ECG Rhythm: Normal Sinus Initial ECG Intervals: Normal Initial ECG Intervals [place] 180, QRSD 93, QT 379, QTc 421. [place] P- 18, QRS 12, T 28 Initial ECG Impression: Normal Initial ECG Comparisson: Unchanged Departure Impression Primary Impression: Syncope Qualified Codes: R55 - Syncope and collapse Disposition: 01 HOME, SELF-CARE Condition: Improved Departure-Patient Inst. Decision time for Depature: 16:30 Referrals: MÓNICA MANE MD (PCP/Family) Primary Care Physician Patient Instructions: Syncope (Fainting) (DC) Add. Discharge Instructions: Eat small frequent meals. Continue medications per Drs. MANE and JONN. Follow-up with Dr. Mane if symptoms are not improving or worsen. Return to the emergency department for new, urgent healthcare problems. All discharge instructions reviewed with patient and/or family. Voiced understanding. SHY DUTTON May 27, 2021 15:23
[2021-05-27 15:25] LABS: BILIRUBIN,TOTAL 0.5 MG/DL (0.1-1.0)
[2021-05-27 15:27] LABS: CREATININE SERUM 1.18 MG/DL (0.60-1.30)
[2021-05-27 15:31] LABS: BACTERIA,URINE TRACE /HPF; WBC,URINE RARE /HPF
[2021-05-27 15:37] LABS: INR 0.9 (0.8-1.4)
[2021-05-27 16:58] VITALS: BP 137/92
== END 2021-05-27 16:58 | disposition home or self-care (01) ==
LOC: EDUNIT# 14:50 → ER 14:52
DX: R55 Syncope and collapse (principal); F17.210 Nicotine dependence, cigarettes, uncomplicated
CPT/HCPCS: 36415; 80053; 81000; 82150; 82947; 83690; 84484; 85025; 85610; 85730; 86141; 93005

== ENCOUNTER → 2021-06-04 | Outpatient (CLI) | payer BC ==
--- NOTE | 2021-06-04 08:17 | Diagnostic Imaging Report ---
PROCEDURE: US Gallbladder. INDICATION: Hypotensive, abnormal appearance to gallbladder on CT imaging. TECHNIQUE: Multiple grayscale sonographic images were obtained of the right upper quadrant of the abdomen. CORRELATION STUDY: CT abdomen pelvis 04/30/2021 FINDINGS: LIVER: Perhaps slight fatty infiltration with increased echogenicity. No definitive focal lesion. Liver length at 15.7 cm, normal. The main portal vein is patent and with normal direction of flow. GALLBLADDER: No definitive shadowing gallstones. Gallbladder thickness is borderline just under 3 mm in size. COMMON BILE DUCT: Nondilated at 0.3 cm. AORTA/IVC: Not well visualized. PANCREAS: Visualized portions appearing unremarkable. RIGHT KIDNEY: 13.4 x 6.0 x 6.5 cm. No hydronephrosis. OTHER: None. IMPRESSION: 1. No definitive cholelithiasis or abnormal gallbladder wall thickening. No overt bile duct dilatation. 2. Question mild fatty infiltration of the liver. Dictated by: Dictated on workstation # [id number]
== END ==
LOC: RAD 07:10
PROVIDERS: ATTEND Family Medicine
DX: K80.20 Calculus of gallbladder without cholecystitis without obstruction (principal)
CPT/HCPCS: 76705

== ENCOUNTER → 2021-06-13 | Outpatient (CLI) | payer BC | LOC: CARD 14:30 | PROVIDERS: ATTEND Internal Medicine Cardiovascular Disease | DX: I11.9 Hypertensive heart disease without heart failure (principal) | CPT/HCPCS: 93306 ==

== ENCOUNTER 2021-07-18 07:59 | Outpatient (CLI) | payer BC | END 2021-07-18 09:00 | LOC: SLEEP 07:59 | PROVIDERS: ATTEND Family Medicine | DX: G47.9 Sleep disorder, unspecified (principal); I10 Essential (primary) hypertension | CPT/HCPCS: G0399 ==

== ENCOUNTER → 2021-07-18 | Outpatient (CLI) | payer BC ==
--- NOTE | 2021-07-18 11:06 | Diagnostic Imaging Report ---
CLINICAL INDICATION: Patient passed out in May 2021. EXAM: MRI of the brain performed without and with IV contrast. Sequences include sagittal T1, axial T2, axial flair, axial gradient echo, DWI, ADC map, and axial T1. COMPARISON: None. FINDINGS: There is no evidence of acute cerebral infarct, intracranial hemorrhage, or gross mass effect. The brain parenchymal volume appears appropriate for patient's age. There are multiple focal, patchy and confluent areas of high T2 signal white matter changes involving both cerebral hemispheres and periventricular regions, likely representing chronic small vessel ischemic disease and leukoaraiosis. There is normal malik-white matter distinction. There is no significant midline shift or herniation. The [place] vascular structures show no gross abnormality as visualized. The pituitary gland, sella, and suprasellar regions are unremarkable as visualized. There is no evidence of hydrocephalus. The basal cisterns are unremarkable. The skull, extracranial soft tissue, and orbits are unremarkable. There is consolidation of the left maxillary sinus. There is large amount of consolidation involving the ethmoid sinus. There is moderate amount of consolidation involving the frontal sinus. There is minimal mucosal thickening involving the sphenoid sinus and right maxillary sinus. Temporal bones show no significant abnormality. IMPRESSION: 1: There is no evidence of acute intracranial process. 2: Age-related brain parenchymal changes including chronic small vessel ischemic disease and leukoaraiosis. 3: There is diffuse paranasal sinusitis. Dictated by: Dictated on workstation # [id number]
== END ==
LOC: RAD 07:57
PROVIDERS: ATTEND Family Medicine
DX: G31.1 Senile degeneration of brain, not elsewhere classified (principal)
CPT/HCPCS: 70551

== ENCOUNTER → 2021-10-25 | Outpatient (CLI) | payer BC ==
[~2021-10-25] MED LIST changes: +CATHETER FLUSH 10 ML SYR IV PRN; +HOLD METFORMIN - RECEIVED CONTRAST 20 ML VIAL IV SCH; +IOHEXOL 350 MG/ML 100 ML (OMNIPAQUE 350) VIAL IV ONE; +NS 100 ML (IVPB) BAG IV ONE
[2021-10-25 08:10] LABS: POTASSIUM 4.4 MMOL/L (3.6-5.0)
[2021-10-25 08:11] LABS: CALCIUM 9.6 MG/DL (8.5-10.1)
[2021-10-25 08:15] LABS: CREATININE SERUM 0.78 MG/DL (0.60-1.30)
--- NOTE | 2021-10-25 13:22 | Diagnostic Imaging Report ---
CT HEAD/ORBITS/IAC W WO INDICATION: Retinal vein occlusion COMPARISON: MRI brain without contrast from 07/18/2021 TECHNIQUE: CT imaging of the head and orbits was performed without and with IV contrast. Automatic exposure controls were utilized to keep dose as low as reasonably achievable. FINDINGS: Orbits: The globes are symmetric. No retrobulbar fat stranding. Intraconal and extra coronal fat remains pristine. Due to small size, the retinal veins are suboptimally evaluated by CT. The extraocular muscles are normal in bulk and symmetric. Optic nerve sheath complexes are grossly normal. The cavernous sinuses opacify symmetrically. Head: No intracranial hyperdense hemorrhage or space-occupying mass. No hydrocephalus or midline shift. Global atrophy is present. Old lacunar infarcts are present in the bilateral basal ganglia. No pathologic enhancement within the brain. Complete opacification of the bilateral frontal and ethmoid sinuses are present. IMPRESSION: 1. Normal CT appearance of the orbits on pre and postcontrast imaging. 2. No features of cavernous sinus thrombosis. 3. Old lacunar infarcts in the bilateral basal ganglia. No acute intracranial abnormality or pathologic enhancement. Dictated by: Dictated on workstation # [id number]
== END ==
LOC: RAD 07:42
PROVIDERS: ATTEND Specialist
DX: I63.81 Other cerebral infarction due to occlusion or stenosis of small artery (principal); H34.8310 Tributary (branch) retinal vein occlusion, right eye, with macular edema
CPT/HCPCS: 36415; 70470; 70482; 80048

== ENCOUNTER → 2023-01-08 | Outpatient (CLI) | payer BC ==
[~2023-01-08] MED LIST changes: -CATHETER FLUSH 10 ML SYR IV PRN; -HOLD METFORMIN - RECEIVED CONTRAST 20 ML VIAL IV SCH; -IOHEXOL 350 MG/ML 100 ML (OMNIPAQUE 350) VIAL IV ONE; -NS 100 ML (IVPB) BAG IV ONE; -ROPI0.253 PO; +ROPI0.2533 PO
[2023-01-08 10:48] VITALS: BP 118/61
--- NOTE | 2023-01-08 10:48 | Cardiology Stress Test Report ---
Stress Test Report Date of Procedure/Referring: Date of Procedure: Jan 08, 2023 PCP Mónica Mane MD Admitting Physician Admitting Physician: Attending Physician: Darin Gonzáles MD Baseline Heart Rate: 82 Baseline Blood Pressure: Blood Pressure Systolic: 118 Blood Pressure Diastolic: 61 Baseline EKG: Baseline EKG: NSR Summary/Conclusion: Summary: In summary, the patient started exercising with a baseline heart rate, blood pressure and EKG mentioned above Patient was able to exercise for a total of 4 minutes on Boaz protocol, METs 5.8 Maximum heart rate 131 Maximum blood pressure 221/57 Stress EKG, Minimal nondiagnostic changes Recovery EKG , Return to baseline Conclusion: Fair exercise tolerance for 4 minutes on standard Boaz protocol, 5.8 METS achieving 83% of maximal expected heart rate Appropriate heart rate response to exercise with hypertensive response to ex ercise with peak blood pressure 221/57 return to baseline during recovery Minimal nondiagnostic EKG changes with exercise return to baseline during recovery No arrhythmia detected during test Copy Copies To 1: MÓNICA MANE MD, BASHAR J MD Jan 08, 2023 10:48
== END ==
LOC: CARD 09:00
PROVIDERS: ATTEND Internal Medicine Cardiovascular Disease
DX: R07.9 Chest pain, unspecified (principal); R00.2 Palpitations
CPT/HCPCS: 93017